=== PATIENT | female | born 1970 | race Caucasian/White ===

== ENCOUNTER → 2016-08-17 | Outpatient (CLI) | payer MEDICARE, OTHER ==
[2016-08-17 14:15] LABS: Blood Urea Nitrogen 10 mg/dL (7-17); Lithium 0.5 mmol/L; Non-African American GFR(MDRD) >60 (>60 ml/min/1.73 sqM)
[2016-08-18 14:52] LABS: Nortriptyline 106 ng/mL (50-140)
== END | disposition home or self-care (01) ==
LOC: LABWHC1 13:27
PROVIDERS: ATTEND Psychiatry & Neurology Psychiatry
DX: Z51.81 Encounter for therapeutic drug level monitoring (principal); Z79.899 Other long term (current) drug therapy
CPT/HCPCS: 84439; 82565; 80178; 84443; 84520; 36415; G0480; 80335

== ENCOUNTER → 2017-06-06 | Outpatient (CLI) | payer MEDICARE, OTHER ==
[2017-06-06 14:38] LABS: Lithium 0.4 mmol/L
[2017-06-06 14:52] LABS: T4, Free (Free Thyroxine) 0.92 ng/dL (0.78-2.19)
== END | disposition home or self-care (01) ==
LOC: LABWHC1 13:59
PROVIDERS: ATTEND Psychiatry & Neurology Psychiatry
DX: Z51.81 Encounter for therapeutic drug level monitoring (principal); Z79.899 Other long term (current) drug therapy
CPT/HCPCS: 36415; 80178; 82565; 84439; 84443; 84520

== ENCOUNTER → 2018-04-23 | Outpatient (CLI) | payer MEDICARE, OTHER ==
[2018-04-23 18:07] LABS: Lithium 0.4 mmol/L (1.0-1.2)
[2018-04-23 18:12] LABS: T4, Free (Free Thyroxine) 1.1 ng/dL (0.80-1.80)
== END | disposition home or self-care (01) ==
LOC: LABWHC1 12:48
PROVIDERS: ATTEND Psychiatry & Neurology Psychiatry
DX: Z51.81 Encounter for therapeutic drug level monitoring (principal); Z79.899 Other long term (current) drug therapy
CPT/HCPCS: 36415; 80178; 82565; 84439; 84443; 84520

== ENCOUNTER 2021-10-23 01:38 | Emergency (ER) | payer MEDICARE, OTHER ==
--- NOTE | 2021-10-23 01:52 | ED ---
Psych HPI - General Chief Complaint: Psychiatric Symptoms Stated Complaint: Police petition Time Seen by Provider: 10/23/21 01:52 Source: patient, police, RN notes reviewed, old records reviewed Mode of arrival: ambulatory Limitations: altered mental status - History of Present Illness Initial Comments: This is a 51-year-old female to the emergency department for evaluation. Patient brought in by family petition and family and PD for psychiatric eval uation secondary increased melba insomnia, increased agitation. No suspicion for drugs or alcohol abuse. Patient has history of same which she indicated combative and difficult to be around per family. MD Complaint: altered mental status -: unknown Associated Psychiatric Symptoms: racing thoughts, auditory hallucinations, visual hallucinations, delusions Quality: getting worse Improves With: none Context: significant life stressor Associated Symptoms: confusion, insomnia Treatments Prior to Arrival: placed on mental health hold - Related Data Home Medications Medication Instructions Recorded Confirmed [place] Carbonate [[place] 600 mg PO BID 10/23/21 10/23/21 Carbonate ER] buPROPion XL [Wellbutrin XL] 150 mg PO DAILY 10/23/21 10/23/21 Allergies Allergy/AdvReac Type Severity Reaction Status Date / Time amoxicillin Allergy Rash/Hives Verified 10/23/21 14:04 carbamazepine [From Tegretol] Allergy Unknown Verified 10/23/21 14:04 fluphenazine enanthate Allergy Unknown Verified 10/23/21 14:04 [From Prolixin] fluphenazine HCl Allergy Unknown Verified 10/23/21 14:04 [From Prolixin] olanzapine [From Zyprexa] Allergy Unknown Verified 10/23/21 14:04 Review of Systems ROS Statement: Those systems with pertinent positive or pertinent negative responses have been documented in the HPI. ROS Other: All systems not noted in ROS Statement are negative. Past Medical History Past Medical History: No Reported History History of Any Multi-Drug Resistant Organisms: None Reported Past Surgical History: Breast Surgery, Orthopedic Surgery Additional Past Surgical History / Comment(s): LEEP procedure, and scope v aginally. Breast augmentation. Left great toe surgery has jose and pins in it. Past Anesthesia/Blood Transfusion Reactions: No Reported Reaction Past Psychological History: Anxiety, Bipolar, Depression Smoking Status: Current every day smoker Past Alcohol Use History: Occasional Past Drug Use History: Marijuana - Past Family History Father Family Medical History: Unable to Obtain Additional Family Medical History / Comment(s): unknown Mother Family Medical History: Pulmonary Embolus Additional Family Medical History / Comment(s): Mental Illness, she had Bipolar Depression. General Exam Limitations: no limitations General appearance: alert, in no apparent distress Head exam: Present: atraumatic, normocephalic, normal inspection Eye exam: Present: normal appearance, PERRL, EOMI. Absent: scleral icterus, conjunctival injection, periorbital swelling ENT exam: Present: normal exam, mucous membranes moist Neck exam: Present: normal inspection. Absent: tenderness, meningismus, lymphadenopathy Respiratory exam: Present: normal lung sounds bilaterally. Absent: respiratory distress, wheezes, rales, rhonchi, stridor Cardiovascular Exam: Present: regular rate, normal rhythm, normal heart sounds. Absent: systolic murmur, diastolic murmur, rubs, gallop, clicks GI/Abdominal exam: Present: soft, normal bowel sounds. Absent: distended, tenderness, guarding, rebound, rigid Extremities exam: Present: normal inspection, full ROM, normal capillary refill. Absent: tenderness, pedal edema, joint swelling, calf tenderness Back exam: Present: normal inspection Neurological exam: Present: alert, oriented X3, CN II-XII intact Psychiatric exam: Present: normal affect, normal mood Skin exam: Present: warm, dry, intact, normal color. Absent: rash Course Vital Signs 10/23/21 10/23/21 10/23/21 01:41 05:55 15:00 Temperature 98.1 F 98.7 F Pulse Rate 65 98 87 Respiratory 18 16 16 Rate Blood Pressure 182/116 151/97 131/86 O2 Sat by Pulse 97 98 99 Oximetry - Reevaluation(s) Reevaluation #1: 10/22/21 medical record is reviewed Patient's medically clear for psychiatric evaluation Reevaluation #2: 10/22/21 14:15 Patient was seen and evaluated by psychiatry, was deemed okay for discharge Patient family came to see patient upon discharge the patient became very combative and unruly with family At this time patient was reevaluated by psychiatry with decision made to transfer patient to inpatient psychiatric treatment Medical Decision Making - Medical Decision Making 51 female to the emergency department seen and evaluated psychiatry 2 times here in the emergency department tonight, patient will be transferred for inpatient psychiatric evaluation and treatment - Lab Data Result diagrams: 10/23/21 06:13 10/23/21 06:13 Lab Results 10/23/21 10/23/21 10/23/21 Range/Units 02:15 02:15 02:15 WBC (3.8-10.6) k/uL RBC (3.80-5.40) m/uL Hgb (11.4-16.0) gm/dL Hct (34.0-46.0) % MCV (80.0-100.0) fL MCH (25.0-35.0) pg MCHC (31.0-37.0) g/dL RDW (11.5-15.5) % Plt Count (150-450) k/uL MPV Sodium (137-145) mmol/L Potassium (3.5-5.1) mmol/L Chloride (98-107) mmol/L Carbon Dioxide (22-30) mmol/L Anion Gap mmol/L BUN (7-17) mg/dL Creatinine (0.52-1.04) mg/dL Est GFR (CKD-EPI)AfAm (>60 ml/min/1.73 sqM) Est GFR (CKD-EPI)NonAf (>60 ml/min/1.73 sqM) Glucose (74-99) mg/dL Calcium (8.4-10.2) mg/dL Total Bilirubin (0.2-1.3) mg/dL AST (14-36) U/L ALT (4-34) U/L Alkaline Phosphatase (38-126) U/L Total Protein (6.3-8.2) g/dL Albumin (3.5-5.0) g/dL Urine Color Light Yellow Urine Appearance Clear (Clear) Urine pH 6.0 (5.0-8.0) Ur Specific [place] 1.009 (1.001-1.035) Urine Protein Negative (Negative) Urine Glucose (UA) Negative (Negative) Urine Ketones Negative (Negative) Urine Blood Trace H (Negative) Urine Nitrite Negative (Negative) Urine Bilirubin Negative (Negative) Urine Urobilinogen <2.0 (<2.0) mg/dL Ur Leukocyte Esterase Negative (Negative) Urine RBC <1 (0-5) /hpf Urine WBC 2 (0-5) /hpf Ur Squamous Epith Cells 2 (0-4) /hpf Hyaline Casts 13 H (0-2) /lpf Urine Mucus Rare H (None) /hpf Urine HCG, Qual Not Detected (Not Detectd) Urine Opiates Screen Not Detected (NotDetected) Ur Oxycodone Screen Not Detected (NotDetected) Urine Methadone Screen Not Detected (NotDetected) Ur Propoxyphene Screen Not Detected (NotDetected) Ur Barbiturates Screen Not Detected (NotDetected) U Tricyclic Antidepress Not Detected (NotDetected) Ur Phencyclidine Scrn Not Detected (NotDetected) Ur Amphetamines Screen Not Detected (NotDetected) U Methamphetamines Scrn Not Detected (NotDetected) U Benzodiazepines Scrn Not Detected (NotDetected) Urine Cocaine Screen Not Detected (NotDetected) U Marijuana (THC) Screen Not Detected (NotDetected) Coronavirus (PCR) (Not Detectd) 10/23/21 10/23/21 10/23/21 Range/Units 06:13 06:13 06:13 WBC 12.5 H (3.8-10.6) k/uL RBC 4.00 (3.80-5.40) m/uL Hgb 12.2 (11.4-16.0) gm/dL Hct 36.8 (34.0-46.0) % MCV 91.9 (80.0-100.0) fL MCH 30.4 (25.0-35.0) pg MCHC 33.0 (31.0-37.0) g/dL RDW 13.2 (11.5-15.5) % Plt Count 281 (150-450) k/uL MPV 8.0 Sodium 139 (137-145) mmol/L Potassium 4.1 (3.5-5.1) mmol/L Chloride 108 H (98-107) mmol/L Carbon Dioxide 20 L (22-30) mmol/L Anion Gap 11 mmol/L BUN 13 (7-17) mg/dL Creatinine 0.86 (0.52-1.04) mg/dL Est GFR (CKD-EPI)AfAm >90 (>60 ml/min/1.73 sqM) Est GFR (CKD-EPI)NonAf 80 (>60 ml/min/1.73 sqM) Glucose 125 H (74-99) mg/dL Calcium 10.1 (8.4-10.2) mg/dL Total Bilirubin 0.5 (0.2-1.3) mg/dL AST 20 (14-36) U/L ALT 21 (4-34) U/L Alkaline Phosphatase 75 (38-126) U/L Total Protein 7.4 (6.3-8.2) g/dL Albumin 4.5 (3.5-5.0) g/dL Urine Color Urine Appearance (Clear) Urine pH (5.0-8.0) Ur Specific [place] (1.001-1.035) Urine Protein (Negative) Urine Glucose (UA) (Negative) Urine Ketones (Negative) Urine Blood (Negative) Urine Nitrite (Negative) Urine Bilirubin (Negative) Urine Urobilinogen (<2.0) mg/dL Ur Leukocyte Esterase (Negative) Urine RBC (0-5) /hpf Urine WBC (0-5) /hpf Ur Squamous Epith Cells (0-4) /hpf Hyaline Casts (0-2) /lpf Urine Mucus (None) /hpf Urine HCG, Qual (Not Detectd) Urine Opiates Screen (NotDetected) Ur Oxycodone Screen (NotDetected) Urine Methadone Screen (NotDetected) Ur Propoxyphene Screen (NotDetected) Ur Barbiturates Screen (NotDetected) U Tricyclic Antidepress (NotDetected) Ur Phencyclidine Scrn (NotDetected) Ur Amphetamines Screen (NotDetected) U Methamphetamines Scrn (NotDetected) U Benzodiazepines Scrn (NotDetected) Urine Cocaine Screen (NotDetected) U Marijuana (THC) Screen (NotDetected) Coronavirus (PCR) Not Detected (Not Detectd) Disposition Clinical Impression: Insomnia, Acute psychosis, Major depression, recurrent, chronic, Panic anxiety syndrome, Depression Disposition: TRANSFER TO PSYCH HOSP/UNIT Condition: Fair Instructions (If sedation given, give patient instructions): Brief Psychotic Disorder (ED) Is patient prescribed a controlled substance at d/c from ED?: No Referrals: Delano Valdes MD [Primary Care Provider] - 1-2 days
[2021-10-23 02:37] LABS: Amphetamine Screen,Urine Not Detected (NotDetected); Barbiturate Screen,Urine Not Detected (NotDetected); Benzodiazepines Screen,Urine Not Detected (NotDetected); Cocaine Screen,Urine Not Detected (NotDetected); Methadone Screen, Urine Not Detected (NotDetected); Opiate Screen,Urine Not Detected (NotDetected); Oxycodone Screen, Urine Not Detected (NotDetected); Phencyclidine Screen,Urine Not Detected (NotDetected); Tricyclic Antidepressant,Urine Not Detected (NotDetected); Urn Cannabinoid Scrn Not Detected (NotDetected)
[2021-10-23] MEDS ORDERED: HALOPERIDOL LACTATE 5 MG/ML 1 ML VIAL IM STA (05:03)
[2021-10-23 06:13] LABS: Appearance,Urine Clear (Clear); Bilirubin,Urine Negative (Negative); Blood,Urine Trace (Negative); Color,Urine Light Yellow; Glucose,Urine (UA) Negative (Negative); Hyaline Casts,Urine 13 /lpf (0-2); Ketones,Urine Negative (Negative); Leukocyte Esterase,Urine Negative (Negative); Mucus,Urine Rare /hpf; Nitrite,Urine Negative (Negative); Protein,Urine Negative (Negative); RBC,Urine <1 /hpf (0-5); Specific Gravity,Urine 1.009 (1.001-1.035); Squamous Epithelial Cell,Urine 2 /hpf (0-4); Urobilinogen,Urine <2.0 mg/dL (<2.0); WBC,Urine 2 /hpf (0-5)
[2021-10-23 06:39] LABS: HCT 36.8 % (34.0-46.0); HGB 12.2 gm/dL (11.4-16.0); MCH 30.4 pg (25.0-35.0); MCV 91.9 fL (80.0-100.0); Platelet Count 281 k/uL (150-450); RDW 13.2 % (11.5-15.5); WBC 12.5 k/uL (3.8-10.6)
[2021-10-23 06:46] LABS: ALT 21 U/L (4-34); AST 20 U/L (14-36); African American GFR (CKD) >90 (>60 ml/min/1.73 sqM); Albumin 4.5 g/dL (3.5-5.0); Alkaline Phosphatase 75 U/L (38-126); Anion Gap 11 mmol/L; Blood Urea Nitrogen 13 mg/dL (7-17); Calcium 10.1 mg/dL (8.4-10.2); Carbon Dioxide 20 mmol/L (22-30); Chloride 108 mmol/L (98-107); Glucose 125 mg/dL (74-99); Non-African American GFR(CKD) 80 (>60 ml/min/1.73 sqM); Potassium 4.1 mmol/L (3.5-5.1); Sodium 139 mmol/L (137-145); Total Bilirubin 0.5 mg/dL (0.2-1.3); Total Protein 7.4 g/dL (6.3-8.2)
[2021-10-23 16:07] VITALS: TEMP 98.7
[2021-10-23] MEDS: LITHIUM CARBONATE 300 MG CAP PO SCH (19:01)
[2021-10-23] MEDS ORDERED: LORazepam 1 MG TAB PO STA (21:11)
[2021-10-23] MEDS ORDERED: BENZOCAINE/MENTHOL LOZENG 1 EACH LOZENGE MUCOUS MEM PRN (22:14)
[2021-10-24] MEDS: LITHIUM CARBONATE 300 MG CAP PO SCH (08:07)
[2021-10-24] MEDS ORDERED: buPROPion XL 300 MG TAB.ER.24H PO SCH (09:00)
[2021-10-24 14:47] VITALS: BP 139/78; PULSE 88; RESP 20
== END 2021-10-24 14:47 ==
LOC: EC 01:38
DX: F32.A Depression, unspecified (principal); F41.9 Anxiety disorder, unspecified; G47.00 Insomnia, unspecified; F17.200 Nicotine dependence, unspecified, uncomplicated; Z20.822 Contact with and (suspected) exposure to COVID-19; Z88.0 Allergy status to penicillin; Z88.8 Allergy status to other drugs, medicaments and biological substances; Z88.7 Allergy status to serum and vaccine
CPT/HCPCS: 82075; 36415; 80053; 80178; 85027; 81001; 81025; 80306; 87635; 99285; 96372; J1630

== ENCOUNTER 2022-06-02 15:20 | Inpatient (IN) | payer MEDICARE ==
[2022-06-02] MEDS ORDERED: NALOXONE 0.4 MG/ML 1 ML VIAL IV PRN (15:58)
--- NOTE | 2022-06-02 16:02 | P.HPIM ---
History of Present Illness H&P Date: 06/02/22 Chief Complaint: Catatonia, dehydration 52-year-old woman with a medical history of bipolar disorder presented as a transfer from [facility] under petition certification for worsening psychiatric symptoms. Medicine was consulted for medical clearance of this patient. However, medicine was later contacted given patient's dehydration status, poor by mouth intake, severe catatonia. They requested transfer to the medical floor for IV fluids as well as IV Ativan to break catatonia. Patient is a poor historian and cannot provide any history and cannot participate with review of systems. Upon evaluation, patient was afebrile, 117/72, heart rate 105, 95% on room air. CBC reviewed from this morning shows leukocytosis to 14.4, chemistries show 134 sodium, CO2 of 21, BUN 21, creatinine of 0.88. Calcium is 10.4. Liver function tests show total bilirubin of 1.5. CK is 604. Vitamin B-12 was 454, folate was 30.8. UA shows cloudy appearance with trace protein, large blood, 8 red blood cells, 6 white blood cells, rare bacteria. [place] level was 1.3 this morning. Treponema antibody was nonreactive. EKG shows sinus tachycardia with left axis deviation, good R-wave progression, no signs of ischemia. Review of systems could not be completed due to patient's mental status Gen: in no apparent distress, resting comfortably in bed Eyes: PERRL, no scleral injection or icterus HENT: normocephalic, atraumatic, good hearing acuity, dry mucous membranes Neck: no tracheal deviation, full range of motion Resp: good air exchange, breathing comfortably with no accessory muscle use, no tactile fremitus, clear to auscultation bilaterally CVS: good distal perfusion x 4, no pitting edema, tachycardic, regular, no murmurs GI: soft, NTTP, ND, no hepatosplenomegaly, normal bowel sounds : no suprapubic tenderness, no CVAT, irvin catheter not present MSK: no clubbing, no cyanosis, no noted contractures of extremities Skin: no noted rashes, petechiae; temperature of skin is appropriate Neuro: moving all extremities without signs of weakness, CN II-XII intact Psych: Catatonia with waxy rigidity, impaired insight and judgment Labs and imaging as above Assessment: Dehydration secondary to poor by mouth intake Catatonia Bipolar disorder Plan: Case discussed with the psychiatry team and decision was made to escalate care to the medical floor for dehydration as well as catatonia requiring benzodiazepines via the IV route Labs were reviewed and noted in HPI including CBC, BMP, CK, vitamin B12, folate, UA, Treponema, lithium level, liver function tests EKG was personally interpreted noted in HPI CBC, BMP, magnesium ordered for tomorrow Repeat lithium level was ordered and a red top tube to ensure no lithium contamination in the reading Patient was started on IV fluids with lactated Ringer's at 100 mL per hour and given a 1000 mL bolus Start IV Ativan 1 mg every 6 hours scheduled with hold parameters for SBP less than 100, DBP less than 60, heart rate less than 60 Psychiatry consult placed Monitor the patient on telemetry Past Medical History Past Medical History: No Reported History History of Any Multi-Drug Resistant Organisms: None Reported Past Surgical History: Breast Surgery, Orthopedic Surgery Additional Past Surgical History / Comment(s): LEEP procedure, and scope vaginally. Breast augmentation. Left great toe surgery has jose and pins in it. Past Anesthesia/Blood Transfusion Reactions: No Reported Reaction Smoking Status: Current every day smoker - Past Family History Father Family Medical History: Unable to Obtain Additional Family Medical History / Comment(s): unknown Mother Family Medical History: Pulmonary Embolus Additional Family Medical History / Comment(s): Mental Illness, she had Bipolar Depression. Medications and Allergies Home Medications Medication Instructions Recorded Confirmed Type Val[place] Carbonate [Val[place] 600 mg PO BID 10/23/21 05/31/22 History Carbonate ER] Allergies Allergy/AdvReac Type Severity Reaction Status Date / Time amoxicillin Allergy Rash/Hives Verified 05/31/22 00:36 carbamazepine [From Tegretol] Allergy Unknown Verified 05/31/22 00:36 fluphenazine enanthate Allergy Unknown Verified 05/31/22 00:36 [From Prolixin] fluphenazine HCl Allergy Unknown Verified 05/31/22 00:36 [From Prolixin] olanzapine [From Zyprexa] Allergy Unknown Verified 05/31/22 00:36 Physical Exam Osteopathic Statement: *. No significant issues noted on an osteopathic structural exam other than those noted in the History and Physical/Consult.
[2022-06-02] MEDS ORDERED: LACTATED RINGERS 1,000 ML IV SCH (16:15)
[2022-06-02] MEDS: LORazepam 2 MG/ML INJ IV SCH (17:50)
[2022-06-02] MEDS: LACTATED RINGERS 1,000 ML IV SCH (18:26)
[2022-06-03] MEDS: LORazepam 2 MG/ML INJ IV SCH ×4 (00:28→17:59)
[2022-06-03] MEDS: LACTATED RINGERS 1,000 ML IV SCH ×3 (00:29→21:21)
[2022-06-03 08:54] LABS: Basophils # (A) 0.03 X 10*3/uL (0.00-0.10); Basophils % (A) 0.4 %; Eosinophils % (A) 1.2 %; HCT 34.9 % (37.2-46.3); HGB 11.4 g/dL (12.0-15.0); Immature Grans, Automated 0.4 %; Lymphocytes # (A) 1.24 X 10*3/uL (0.90-5.00); Lymphocytes % (A) 14.8 %; MCH 29.3 pg (27.0-32.0); MCHC 32.7 g/dL (32.0-37.0); MCV 89.7 fL (80.0-97.0); Mean Platelet Volume 10.9 fL (9.5-12.2); Monocytes % (A) 7.2 %; NRBC Per 100 WBC 0 /100 WBCS (0.0-0.0); Neutrophils # (A) 6.37 X 10*3/uL (1.80-7.70); Platelet Count 273 X 10*3/uL (140-440); RBC 3.89 X 10*6/uL (4.10-5.20); RDW 13.8 % (11.5-14.5); WBC 8.37 X 10*3/uL (4.50-10.00)
[2022-06-03] MEDS: ENOXAPARIN 40 MG/0.4 ML SYRINGE SQ SCH (08:59)
[2022-06-03 09:27] LABS: African American GFR (CKD) 117.1 (60.0-200.0); Anion Gap 9.9 mmol/L (10.00-18.00); BUN/Creat Ratio 13.71 Ratio (12.00-20.00); Blood Urea Nitrogen 9.6 mg/dL (9.0-27.0); Calcium 9.7 mg/dL (8.7-10.3); Carbon Dioxide 23.1 mmol/L (20.0-27.5); Magnesium 2.1 mg/dL (1.5-2.4); Potassium 3.8 mmol/L (3.5-5.5)
--- NOTE | 2022-06-03 10:38 | P.PN ---
Subjective Progress Note Date: 06/03/22 No new complaints today, patient continues to not be very interactive with history. Continues to be significantly catatonic. Pending psychiatry consultation. Gen: in no apparent distress, resting comfortably in bed Eyes: PERRL, no scleral injection or icterus HENT: normocephalic, atraumatic, good hearing acuity, dry mucous membranes Neck: no tracheal deviation, full range of motion Resp: good air exchange, breathing comfortably with no accessory muscle use, no tactile fremitus, clear to auscultation bilaterally CVS: good distal perfusion x 4, no pitting edema, tachycardic, regular, no murmurs GI: soft, NTTP, ND, no hepatosplenomegaly, normal bowel sounds : no suprapubic tenderness, no CVAT, irvin catheter not present MSK: no clubbing, no cyanosis, no noted contractures of extremities Skin: no noted rashes, petechiae; temperature of skin is appropriate Neuro: moving all extremities without signs of weakness, CN II-XII intact Psych: Catatonia with waxy rigidity, impaired insight and judgment Hospital course: 52-year-old woman with a medical history of bipolar disorder presented as a transfer from [facility] under petition certification for worsening ps ychiatric symptoms. Medicine was consulted for medical clearance of this patient. However, medicine was later contacted given patient's dehydration status, poor by mouth intake, severe catatonia. They requested transfer to the medical floor for IV fluids as well as IV Ativan to break catatonia. Upon evaluation, patient was afebrile, 117/72, heart rate 105, 95% on room air. CBC reviewed from this morning shows leukocytosis to 14.4, chemistries show 134 sodium, CO2 of 21, BUN 21, creatinine of 0.88. Calcium is 10.4. Liver function tests show total bilirubin of 1.5. CK is 604. Vitamin B-12 was 454, folate was 30.8. UA shows cloudy appearance with trace protein, large blood, 8 red blood cells, 6 white blood cells, rare bacteria. [place] level was 1.3 this morning. Treponema antibody was nonreactive. EKG shows sinus tachycardia with left axis deviation, good R-wave progression, no signs of ischemia. Assessment: Dehydration secondary to poor by mouth intake Catatonia Bipolar disorder Plan: Vital signs reviewed, patient is afebrile, 116/74, heart rate 84, 97% on room air. CBC today shows hemoglobin of 11.4, platelets of 273. Basic metabolic panel shows sodium of 141, potassium 3.8, chloride of 108, BUN of 9.6, these labs are improved from prior and showed resolution of dehydration BMP, magnesium ordered for tomorrow Repeat lithium level drawn yesterday in red top tube was 0.9, down from 1.3 This is discussed with psychiatry, they will see the patient today and determine adjustments to Ativan as required Continue lactated Ringer's at 100 mL per hour Continue IV Ativan 1 mg every 6 hours scheduled with hold parameters for SBP less than 100, DBP less than 60, heart rate less than 60; this is a high risk medication requiring close monitoring for toxicity Psychiatry consult placed Objective - Vital Signs Vital signs: Vital Signs Temp 97.6 F 06/03/22 07:06 Pulse 84 06/03/22 07:06 Resp 16 06/03/22 07:06 BP 116/74 06/03/22 07:06 Pulse Ox 97 06/03/22 07:06 FiO2 Intake & Output 06/02/22 06/03/22 06/03/22 18:59 06:59 18:59 Intake Total 1000 Balance 1000 Weight 65 kg Intake: Intake, IV Titration 1000 Amount Lactated Ringers 1,000 ml 1000 @ 999 mls/hr IV .Q1H1M [facility] Rx#:[id number] Other: Voiding Method Toilet External Catheter # Voids 3 - Labs CBC & Chem 7: 06/03/22 05:22 06/03/22 05:22 Labs: Abnormal Lab Results - Last 24 Hours (Table) 06/03/22 06/03/22 Range/Units 05:22 05:22 RBC 3.89 L (4.10-5.20) X 10*6/uL Hgb 11.4 L (12.0-15.0) g/dL Hct 34.9 L (37.2-46.3) % Anion Gap 9.90 L (10.00-18.00) mmol/L Glucose 112 H (70-110) mg/dL
[2022-06-03] MEDS ORDERED: VALPROATE SODIUM 500 MG in SODIUM CHLORIDE 0.9% 100 ML IVPB SCH (21:00)
[2022-06-03] MEDS ORDERED: VALPROATE SODIUM 750 MG in SODIUM CHLORIDE 0.9% 100 ML IVPB SCH (21:00)
[2022-06-03] MEDS: ZOLPIDEM 5 MG TAB PO SCH (21:21)
[2022-06-03] MEDS: VALPROATE SODIUM 500 MG in SODIUM CHLORIDE 0.9% 100 ML IVPB SCH (21:21)
[2022-06-03] MEDS ORDERED: LORazepam 2 MG/ML INJ IV SCH (22:00)
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
[2022-06-04] MEDS: LORazepam 2 MG/ML INJ IV SCH ×5 (04:25→18:20)
[2022-06-04] MEDS: LACTATED RINGERS 1,000 ML IV SCH ×2 (08:44→18:21)
[2022-06-04] MEDS: VALPROATE SODIUM 500 MG in SODIUM CHLORIDE 0.9% 100 ML IVPB SCH (08:50)
[2022-06-04] MEDS: ENOXAPARIN 40 MG/0.4 ML SYRINGE SQ SCH (08:51)
--- NOTE | 2022-06-04 12:08 | P.PN ---
Subjective Progress Note Date: 06/04/22 No new complaints today, patient continues to not be very interactive with history, but is improving slowly. Continues to be catatonic. Gen: in no apparent distress, resting comfortably in bed Eyes: PERRL, no scleral injection or icterus HENT: normocephalic, atraumatic, good hearing acuity, dry mucous membranes Neck: no tracheal deviation, full range of motion Resp: good air exchange, breathing comfortably with no accessory muscle use, no tactile fremitus, clear to auscultation bilaterally CVS: good distal perfusion x 4, no pitting edema, tachycardic, regular, no murmurs GI: soft, NTTP, ND, no hepatosplenomegaly, normal bowel sounds : no suprapubic tenderness, no CVAT, irvin catheter not present MSK: no clubbing, no cyanosis, no noted contractures of extremities Skin: no noted rashes, petechiae; temperature of skin is appropriate Neuro: moving all extremities without signs of weakness, CN II-XII intact Psych: Catatonia with waxy rigidity, impaired insight and judgment Hospital course: 52-year-old woman with a medical history of bipolar disorder presented as a transfer from [facility] under petition certification for worsening psychiatric symptoms. Medicine was consulted for medical clearance of this patient. However, medicine was later contacted given patient's dehydration status, poor by mouth intake, severe catatonia. They requested transfer to the medical floor for IV fluids as well as IV Ativan to break catatonia. Upon evaluation, patient was afebrile, 117/72, heart rate 105, 95% on room air. CBC reviewed from this morning shows leukocytosis to 14.4, chemistries show 134 sodium, CO2 of 21, BUN 21, creatinine of 0.88. Calcium is 10.4. Liver function tests show total bilirubin of 1.5. CK is 604. Vitamin B-12 was 454, folate was 30.8. UA shows cloudy appearance with trace protein, large blood, 8 red blood cells, 6 white blood cells, rare bacteria. Gu-Win level was 1.3 this morning. Treponema antibody was nonreactive. EKG shows sinus tachycardia with left axis deviation, good R-wave progression, no signs of ischemia. Assessment: Dehydration secondary to poor by mouth intake Catatonia Bipolar disorder Plan: Vital signs reviewed, patient is afebrile, 143/87, heart rate 105, 94% on room air BMP, magnesium ordered for tomorrow CK levels reviewed, 251, down from 600s Psychiatry no reviewed, patient has been showing continued catatonia, they will increase Ativan dose and add Depakote Continue lactated Ringer's at 100 mL per hour Continue IV Ativan 1 mg every 4 hours scheduled with hold parameters for SBP less than 100, DBP less than 60, heart rate less than 60; this is a high risk medication requiring close monitoring for toxicity Agree with Depakote 500 mg twice a day Agree with Ambien 10 mg at bedtime Patient is full code Objective - Vital Signs Vital signs: Vital Signs Temp 98.0 F 06/04/22 07:38 Pulse 105 H 06/04/22 08:00 Resp 18 06/04/22 07:38 BP 125/81 06/04/22 07:38 Pulse Ox 96 06/04/22 07:38 FiO2 Intake & Output 06/03/22 06/04/22 06/04/22 17:59 06:59 18:59 Intake Total Output Total Balance Intake: Intake, IV Titration Amount Lactated Ringers 1,000 ml @ 100 mls/hr IV .Q10H JULIANN Rx#:[id number] Valproate Sodium 500 mg In Sodium Chloride 0.9% 100 ml @ 100 mls/hr IVPB BID JULIANN Rx#:[id number] Oral Output: Urine Other: Voiding Method External Catheter # Voids - Labs CBC & Chem 7: 06/03/22 05:22 06/03/22 05:22 Labs: Abnormal Lab Results - Last 24 Hours (Table) 06/04/22 Range/Units 06:18 Creatine Kinase 251 H (26-186) U/L
[2022-06-04] MEDS: VALPROATE SODIUM 1,000 MG in SODIUM CHLORIDE 0.9% 100 ML IVPB SCH (20:44)
[2022-06-04] MEDS: ZOLPIDEM 5 MG TAB PO SCH (20:44)
[2022-06-05] MEDS: LORazepam 2 MG/ML INJ IV SCH ×6 (00:16→23:56)
[2022-06-05] MEDS: LACTATED RINGERS 1,000 ML IV SCH ×3 (04:22→23:56)
[2022-06-05] MEDS: VALPROATE SODIUM 1,000 MG in SODIUM CHLORIDE 0.9% 100 ML IVPB SCH (09:06)
[2022-06-05] MEDS: ENOXAPARIN 40 MG/0.4 ML SYRINGE SQ SCH (09:07)
--- NOTE | 2022-06-05 10:39 | P.PN ---
Subjective Progress Note Date: 06/05/22 No new complaints today Gen: in no apparent distress, resting comfortably in bed Eyes: PERRL, no scleral injection or icterus HENT: normocephalic, atraumatic, good hearing acuity, dry mucous membranes Neck: no tracheal deviation, full range of motion Resp: good air exchange, breathing comfortably with no accessory muscle use, no tactile fremitus, clear to auscultation bilaterally CVS: good distal perfusion x 4, no pitting edema, tachycardic, regular, no murmurs GI: soft, NTTP, ND, no hepatosplenomegaly, normal bowel sounds : no suprapubic tenderness, no CVAT, irvin catheter not present MSK: no clubbing, no cyanosis, no noted contractures of extremities Skin: no noted rashes, petechiae; temperature of skin is appropriate Neuro: moving all extremities without signs of weakness, CN II-XII intact Psych: Catatonia with waxy rigidity, impaired insight and judgment Hospital course: 52-year-old woman with a medical history of bipolar disorder presented as a transfer from [facility] under petition certification for worsening psychiatric symptoms. Medicine was consulted for medical clearance of this patient. However, medicine was later contacted given patient's dehydration status, poor by mouth intake, severe catatonia. They requested transfer to the medical floor for IV fluids as well as IV Ativan to break catatonia. Upon evaluation, patient was afebrile, 117/72, heart rate 105, 95% on room air. CBC reviewed from this morning shows leukocytosis to 14.4, chemistries show 134 sodium, CO2 of 21, BUN 21, creatinine of 0.88. Calcium is 10.4. Liver function tests show total bilirubin of 1.5. CK is 604. Vitamin B-12 was 454, folate was 30.8. UA shows cloudy appearance with trace protein, large blood, 8 red blood cells, 6 white blood cells, rare bacteria. Olivia Lopez De Gutierrez level was 1.3 this morning. Treponema antibody was nonreactive. EKG shows sinus tachycardia with left axis deviation, good R-wave progression, no signs of ischemia. Assessment: Dehydration secondary to poor by mouth intake Catatonia Bipolar disorder Plan: Vital signs reviewed, patient is afebrile, 131/81, heart rate 100, 96% on room air BMP, magnesium ordered for tomorrow Continue lactated Ringer's at 100 mL per hour Continue IV Ativan 1 mg every 4 hours scheduled with hold parameters for SBP less than 100, DBP less than 60, heart rate less than 60; this is a high risk medication requiring close monitoring for toxicity Agree with Depakote 500 mg twice a day Agree with Ambien 10 mg at bedtime Patient is full code Objective - Vital Signs Vital signs: Vital Signs Temp 98.8 F 06/05/22 07:16 Pulse 100 06/05/22 07:16 Resp 20 06/05/22 07:16 BP 131/81 06/05/22 07:16 Pulse Ox 96 06/05/22 07:16 FiO2 Intake & Output 06/04/22 06/05/22 06/05/22 18:59 06:59 18:59 Intake Total 1500 Output Total 300 900 250 Balance -300 600 -250 Intake: Intake, IV Titration 1300 Amount Lactated Ringers 1,000 ml 1200 @ 100 mls/hr IV .Q10H JULIANN Rx#:[id number] Valproate Sodium 1,000 mg 100 In Sodium Chloride 0.9% 100 ml @ 100 mls/hr IVPB BID JULIANN Rx#:[id number] Oral 200 Output: Urine 300 900 250 Other: Voiding Method External Catheter External Catheter External Catheter # Voids 1 - Labs CBC & Chem 7: 06/03/22 05:22 06/03/22 05:22
--- NOTE | 2022-06-05 17:56 | P.PN ---
Progress Note - Text Progress Note Date: 06/05/22 Psychiatry follow-up note: Interval history: Patient was seen earlier this morning and was found in bed with no obvious improvement in catatonic symptoms as compared to yesterday. She was found with stupor/immobility, mild rigidity, mutism. She does not open her eyes for me today and does not answer questions or follow commands. Nurse reports patient did open her eyes when her name was called. Vital signs reviewed and are stable. Discussed case with medical doctor Dr. Keyes and psychiatry medical grade shoemaker Dr. Agudelo, and will proceed with plans to transfer patient to another facility for ECT treatments to treat the catatonia. Discussed medications with Dr. Keyes, who reports patient's vital signs have tolerated the high doses of Ativan (so far at Ativan 2 mg IV Q6H) and we will plan to increase Ativan to 2 mg Q4H. Called [facility] referral line who report they cannot accommodate patient for ECT due to long wait list. Other hospitals that offer ECT will need to be contacted. Mental status exam: General Appearance: Catatonic, laying on her back, head titled, immobile, breathing loudly with mouth open. Behavior: Laying on her back in bed, catatonic, mutism, immobility. Speech: Mutism. Mood/Affect: Flat affect Suicidality/Homicidality: Unable to assess due to catatonia Perceptions: Unable to assess due to catatonia Though content/process: Unable to assess due to catatonia Memory and concentration: Unable to assess due to catatonia Judgment and insight: Unable to assess due to catatonia IMPRESSIONS: Catatonia Bipolar disorder Elevated CK, mild and trending down Poor oral intake PLAN: -At this time patient DOES require inpatient psychiatric admission, however she is not appropriate for the psychiatry unit at this time due to the severity of her catatonic symptoms and inability to attends to her basic needs. -Patient DOES NOT have decision making capacity at this time and is unable to reason through and communicate/appreciate the risks, benefits and alternatives to treatment. -Delirium precautions recommended with patient including - avoiding use of narcotics and ANGLE SHEAR SET UP OPERATOR sedatives, limit anticholinergic medications when possible, frequent re-orientation, minimize use of restraints, open window shades during the day and close them at night -Would recommend the following medication changes/additions: Increase Ativan to 2 mg IV Q4H scheduled for catatonia. Closely monitor vitals signs and hold for SBP less than 100, DBP less than 60, HR less than 60, or RR less than 8. Decrease Valproate sodium back to 500 mg IV BID for mood stabilization/catatonia. Monitor ammonia and check Depakote level, and adjust Depakote based on results. Continue Ambien 10 mg QHS for catatonia. -Recommend transferring to psychiatric facility that does ECT. Discussed with Dr. Keyes today. Declined by [facility] today due to very long wait list. Other hospitals will need to be contacted. -Fall precautions -Continue to reassess safety and initiate 1:1 sitter if safety concerns arise. -Cannot leave AMA at this time. Patient will need a petition and certification if attempting to leave AMA. -When medically stable and when patient's catatonia has resolved to the point she can attend to her basic needs, patient may eligible for transfer to a psych bed when available. -Communicated plan to patient's nurse. -Will continue to follow along. -Please contact with any questions.
--- NOTE | 2022-06-05 17:58 | P.PN ---
Progress Note - Text Progress Note Date: 06/04/22 Psychiatry Consult follow-up: Interval history: Patient was seen in her bed with IVs running. She continues to display signs of catatonia including mutism, posturing, immobility/stupor, mild rigidity. She is able to briefly open her eyes on command, and answer a couple questions with yes/no. She is able to say "yes" when asked if she has had catatonia before, if she has had ECT before (for catatonia), and if she agrees to ECT. She is able to follow simple command of shaking my hand briefly, then returns to no response to outside stimuli, grunts with breathing heavily. Nurses report some response after IV Ativan doses mostly with stabilization of vitals. Mental status exam: General Appearance: Patient is catatonic, laying on her bed with neck at odd angle, Behavior: Laying on her back in bed, catatonic, mutism, immobility. Speech: Patient's mumbled a few words softly, but mostly mutism. Mood/Affect: Mood is depressed, affect is blunted. Suicidality/Homicidality: Patient is not able to answer regarding any suicidal or homicidal ideation intent or plan. Perceptions: Unable to assess due to catatonia Though content/process: Unable to assess due to catatonia Memory and concentration: Unable to assess due to catatonia Judgment and insight: Unable to assess due to catatonia IMPRESSIONS: Catatonia Bipolar disorder Elevated CK, mild and trending down Poor oral intake PLAN: -At this time patient DOES require inpatient psychiatric admission, however she is not appropriate for the psychiatry unit at this time due to the severity of her catatonic symptoms and inability to attends to her basic needs. -Patient DOES NOT have decision making capacity at this time and is unable to reason through and communicate/appreciate the risks, benefits and alternatives to treatment. -Delirium precautions recommended with patient including - avoiding use of narcotics and ON SITE NURSE sedatives, limit anticholinergic medications when possible, frequent re-orientation, minimize use of restraints, open window shades during the day and close them at night -Would recommend the following medication changes/additions: Increase Ativan to 2 mg IV Q6H scheduled for catatonia. Closely monitor vitals signs and hold for SBP less than 100, DBP less than 60, HR less than 60, or RR less than 8. Increase Valproate sodium to 1000 mg IV BID x 2 doses for mood stabilization/catatonia. Continue Ambien 10 mg QHS for catatonia. -Consider transferring to psychiatric facility that does ECT. -Fall precautions -Continue to reassess safety and initiate 1:1 sitter if safety concerns arise. -Cannot leave AMA at this time. Patient will need a petition and certification if attempting to leave AMA. -When medically stable and when patient's catatonia has resolved to the point she can attend to her basic needs, patient may eligible for transfer to a psych bed when available. -Communicated plan to patient's nurse. -Will continue to follow along. -Please contact with any questions.
[2022-06-05] MEDS: ZOLPIDEM 5 MG TAB PO SCH (20:14)
[2022-06-05] MEDS: VALPROATE SODIUM 500 MG in SODIUM CHLORIDE 0.9% 100 ML IVPB SCH (20:38)
[2022-06-06] MEDS: LORazepam 2 MG/ML INJ IV SCH ×5 (04:15→20:16)
[2022-06-06 05:01] LABS: African American GFR (CKD) >90 (>60 ml/min/1.73 sqM); Anion Gap 6 mmol/L; Blood Urea Nitrogen 15 mg/dL (7-17); Calcium 8.6 mg/dL (8.4-10.2); Carbon Dioxide 24 mmol/L (22-30); Chloride 109 mmol/L (98-107); Glucose 90 mg/dL (74-99); Magnesium 2.2 mg/dL (1.6-2.3); Non-African American GFR(CKD) >90 (>60 ml/min/1.73 sqM); Potassium 3.8 mmol/L (3.5-5.1); Sodium 139 mmol/L (137-145)
[2022-06-06 05:06] LABS: Valproic Acid (Depakene) 92.6 ug/mL
[2022-06-06] MEDS: ENOXAPARIN 40 MG/0.4 ML SYRINGE SQ SCH (08:51)
[2022-06-06] MEDS: VALPROATE SODIUM 500 MG in SODIUM CHLORIDE 0.9% 100 ML IVPB SCH ×2 (08:51→20:27)
[2022-06-06] MEDS: LACTATED RINGERS 1,000 ML IV SCH ×2 (08:56→20:17)
--- NOTE | 2022-06-06 11:22 | P.PN ---
Subjective Progress Note Date: 06/06/22 No new complaints today. Patient continues to have severe catatonia. Gen: in no apparent distress, resting comfortably in bed Eyes: PERRL, no scleral injection or icterus HENT: normocephalic, atraumatic, good hearing acuity, dry mucous membranes Neck: no tracheal deviation, full range of motion Resp: good air exchange, breathing comfortably with no accessory muscle use, no tactile fremitus, clear to auscultation bilaterally CVS: good distal perfusion x 4, no pitting edema, tachycardic, regular, no murmurs GI: soft, NTTP, ND, no hepatosplenomegaly, normal bowel sounds : no suprapubic tenderness, no CVAT, irvin catheter not present MSK: no clubbing, no cyanosis, no noted contractures of extremities Skin: no noted rashes, petechiae; temperature of skin is appropriate Neuro: moving all extremities without signs of weakness, CN II-XII intact Psych: Catatonia with waxy rigidity, impaired insight and judgment Hospital course: 52-year-old woman with a medical history of bipolar disorder presented as a transfer from [facility] under petition certification for worsening psychiatric symptoms. Medicine was consulted for medical clearance of this patient. However, medicine was later contacted given patient's dehydration status, poor by mouth intake, severe catatonia. They requested transfer to the medical floor for IV fluids as well as IV Ativan to break catatonia. Upon evaluation, patient was afebrile, 117/72, heart rate 105, 95% on room air. CBC reviewed from this morning shows leukocytosis to 14.4, chemistries show 134 sodium, CO2 of 21, BUN 21, creatinine of 0.88. Calcium is 10.4. Liver function tests show total bilirubin of 1.5. CK is 604. Vitamin B-12 was 454, folate was 30.8. UA shows cloudy appearance with trace protein, large blood, 8 red blood cells, 6 white blood cells, rare bacteria. [place] level was 1.3 this morning. Treponema antibody was nonreactive. EKG shows sinus tachycardia with left axis deviation, good R-wave progression, no signs of ischemia. Assessment: Dehydration secondary to poor by mouth intake Catatonia Bipolar disorder Plan: Vital signs reviewed, patient is afebrile, 103/69, heart rate 76, 95% on room air Basic metabolic panel shows chloride of 109, otherwise unremarkable. Magnesium is 2.2. Valproic acid level was 92.6. Order basic metabolic panel, magnesium for tomorrow Continue lactated Ringer's at 100 mL per hour Continue IV Ativan 2 mg every 4 hours scheduled with hold parameters for SBP less than 100, DBP less than 60, heart rate less than 60; this is a high risk medication requiring close monitoring for toxicity Agree with Depakote 500 mg twice a day Agree with Ambien 10 mg at bedtime Patient is full code Objective - Vital Signs Vital signs: Vital Signs Temp 98.1 F 06/06/22 07:25 Pulse 76 06/06/22 07:25 Resp 20 06/06/22 07:25 BP 103/69 06/06/22 07:25 Pulse Ox 95 06/06/22 07:25 FiO2 Intake & Output 06/05/22 06/06/22 06/06/22 18:59 06:59 18:59 Intake Total 0 Output Total 450 1250 400 Balance -450 -1250 -400 Intake: Oral 0 Output: Urine 450 1250 400 Other: Voiding Method External Catheter External Catheter # Voids 1 1 - Labs CBC & Chem 7: 06/03/22 05:22 06/06/22 04:33 Labs: Abnormal Lab Results - Last 24 Hours (Table) 06/06/22 Range/Units 04:33 Chloride 109 H (98-107) mmol/L
--- NOTE | 2022-06-06 13:02 | P.PN ---
Progress Note - Text Progress Note Date: 06/06/22 Psychiatry follow-up note: Interval history: Patient continues to display significant catatonia. She displays significant symptoms of mutism, stupor, catalepsy, and negativism. Makayla-Maxime rating of 22. She has been non responsive to external stimuli including painful stimuli. Discussed case with medical doctor Dr. Keyes and psychiatry paramedical aide Dr. Agudelo, and will proceed with plans to transfer patient to another facility for ECT treatments to treat the catatonia. Discussed medications with Dr. Keyes, patient vitals tolerating current ativan dose of 2 mg Q4Hr. Discussed plans to taper Depakote at this time. Should patient switch to melba, it may be favorable for management of acute catatonia as it would help with appetite as there is concern for patient lacking oral intake. Plans for NG tube placement. Once NG tube in place, we will likely start regimen of lithium and pamelor along with scheduled ativan in lieu of ECT treatment. Will consider use of memantine as well after review of literature. May consider use of dizaepam drip. Prognosis is guarded at this time. Mental status exam: General Appearance: Catatonic, laying on her back, head titled, immobile, breathing loudly with mouth open. Catalepsy. Behavior: Laying on her back in bed, catatonic, mutism, immobility. Able to place arm in bizarre posture and it is held. Speech: Mutism. Mood/Affect: Flat affect Suicidality/Homicidality: Unable to assess due to catatonia Perceptions: Unable to assess due to catatonia Though content/process: Unable to assess due to catatonia Memory and concentration: Unable to assess due to catatonia Judgment and insight: Unable to assess due to catatonia IMPRESSIONS: Catatonia Bipolar disorder Elevated CK, mild and trending down Poor oral intake PLAN: -At this time patient DOES require inpatient psychiatric admission, however she is not appropriate for the psychiatry unit at this time due to the severity of her catatonic symptoms and inability to attends to her basic needs. -Patient DOES NOT have decision making capacity at this time and is unable to reason through and communicate/appreciate the risks, benefits and alternatives to treatment. -Delirium precautions recommended with patient including - avoiding use of narcotics and ONLINE ACTIVIST sedatives, limit anticholinergic medications when possible, frequent re-orientation, minimize use of restraints, open window shades during the day and close them at night -Would recommend the following medication changes/additions: Continue Ativan to 2 mg IV Q4H scheduled for catatonia. Closely monitor vitals signs and hold for SBP less than 100, DBP less than 60, HR less than 60, or RR less than 8. Decrease Valproate sodium back to 500 mg IV HS for mood stabilization/catatonia. Monitor ammonia and check Depakote level 92.6. Will taper. Taper Ambien to 5 mg QHS. Once NG tube placed, we will initiate treatment with pamelor/lithium combination. -Recommend transferring to psychiatric facility that does ECT. Discussed with Dr. Keyes today. -Fall precautions -Continue to reassess safety and initiate 1:1 sitter if safety concerns arise. -Cannot leave AMA at this time. Patient will need a petition and certification if attempting to leave AMA. -When medically stable and when patient's catatonia has resolved to the point she can attend to her basic needs, patient may eligible for transfer to a psych bed when available. -Communicated plan to patient's nurse. -Will continue to follow along. -Please contact with any questions. Vital Signs Temp 98.1 F 06/06/22 07:25 Pulse 100 06/06/22 08:55 Resp 20 06/06/22 08:55 BP 103/69 06/06/22 07:25 Pulse Ox 95 06/06/22 07:25 FiO2 Intake & Output 06/05/22 06/06/22 06/06/22 18:59 06:59 18:59 Intake Total 0 Output Total 450 1250 400 Balance -450 -1250 -400 Intake: Oral 0 Output: Urine 450 1250 400 Other: Voiding Method External Catheter External Catheter External Catheter # Voids 1 1 Laboratory Results WBC 8.37 X 10*3/uL (4.50-10.00) 06/03/22 05:22 RBC 3.89 X 10*6/uL (4.10-5.20) L 06/03/22 05:22 Hgb 11.4 g/dL (12.0-15.0) L 06/03/22 05:22 Hct 34.9 % (37.2-46.3) L 06/03/22 05:22 MCV 89.7 fL (80.0-97.0) 06/03/22 05:22 MCH 29.3 pg (27.0-32.0) 06/03/22 05:22 MCHC 32.7 g/dL (32.0-37.0) 06/03/22 05:22 RDW 13.8 % (11.5-14.5) 06/03/22 05:22 Plt Count 273 X 10*3/uL (140-440) 06/03/22 05:22 MPV 10.9 fL (9.5-12.2) 06/03/22 05:22 Immature Gran % (Auto) 0.4 % 06/03/22 05:22 Absolute Nucleated RBC 0 X 10*3/uL (0.00-0.00) 06/03/22 05:22 Neutrophils % 76.0 % 06/03/22 05:22 Lymphocytes % 14.8 % 06/03/22 05:22 Monocytes % 7.2 % 06/03/22 05:22 Eosinophils % 1.2 % 06/03/22 05:22 Basophils % 0.4 % 06/03/22 05:22 Immature Gran # 0.03 X 10*3/uL (0.00-0.04) 06/03/22 05:22 Neutrophils # 6.37 X 10*3/uL (1.80-7.70) 06/03/22 05:22 Lymphocytes # 1.24 X 10*3/uL (0.90-5.00) 06/03/22 05:22 Monocytes # 0.60 X 10*3/uL (0.20-1.00) 06/03/22 05:22 Eosinophils # 0.10 X 10*3/uL (0.04-0.35) 06/03/22 05:22 Basophils # 0.03 X 10*3/uL (0.00-0.10) 06/03/22 05:22 NRBC/100 WBC Diff 0 /100 WBCS (0.0-0.0) 06/03/22 05:22 Sodium 139 mmol/L (137-145) 06/06/22 04:33 Potassium 3.8 mmol/L (3.5-5.1) 06/06/22 04:33 Chloride 109 mmol/L (98-107) H 06/06/22 04:33 Carbon Dioxide 24 mmol/L (22-30) 06/06/22 04:33 Anion Gap 6 mmol/L 06/06/22 04:33 BUN 15 mg/dL (7-17) 06/06/22 04:33 Creatinine 0.58 mg/dL (0.52-1.04) 06/06/22 04:33 Est GFR (CKD-EPI)AfAm >90 (>60 ml/min/1.73 sqM) 06/06/22 04:33 Est GFR (CKD-EPI)NonAf >90 (>60 ml/min/1.73 sqM) 06/06/22 04:33 BUN/Creatinine Ratio 13.71 Ratio (12.00-20.00) 06/03/22 05:22 Glucose 90 mg/dL (74-99) 06/06/22 04:33 Calcium 8.6 mg/dL (8.4-10.2) 06/06/22 04:33 Magnesium 2.2 mg/dL (1.6-2.3) 06/06/22 04:33 Ammonia 28 umol/L (<30) 06/06/22 04:33 Creatine Kinase 251 U/L (26-186) H 06/04/22 06:18 Valproic Acid 92.6 ug/mL 06/06/22 04:33 Allergies Allergy/AdvReac Type Severity Reaction Status Date / Time amoxicillin Allergy Rash/Hives Verified 05/31/22 00:36 carbamazepine [From Tegretol] Allergy Unknown Verified 05/31/22 00:36 fluphenazine enanthate Allergy Unknown Verified 05/31/22 00:36 [From Prolixin] fluphenazine HCl Allergy Unknown Verified 05/31/22 00:36 [From Prolixin] olanzapine [From Zyprexa] Allergy Unknown Verified 05/31/22 00:36
[2022-06-06] MEDS: ZOLPIDEM 5 MG TAB PO SCH (20:15)
[2022-06-07] MEDS: LORazepam 2 MG/ML INJ IV SCH ×6 (00:10→20:16)
[2022-06-07] MEDS: ACETAMINOPHEN TAB 325 MG TAB PO PRN (08:12)
[2022-06-07] MEDS: ENOXAPARIN 40 MG/0.4 ML SYRINGE SQ SCH (08:13)
--- NOTE | 2022-06-07 09:44 | P.PN ---
Subjective Progress Note Date: 06/07/22 Patient is harder to arouse today, also had low grade fever since starting tube feeds overnight. Suspect aspiration Gen: in no apparent distress, resting comfortably in bed Eyes: PERRL, no scleral injection or icterus HENT: normocephalic, atraumatic, good hearing acuity, dry mucous membranes Neck: no tracheal deviation, full range of motion Resp: good air exchange, breathing comfortably with no accessory muscle use, no tactile fremitus, clear to auscultation bilaterally CVS: good distal perfusion x 4, no pitting edema, tachycardic, regular, no murmurs GI: soft, NTTP, ND, no hepatosplenomegaly, normal bowel sounds : no suprapubic tenderness, no CVAT, irvin catheter not present MSK: no clubbing, no cyanosis, no noted contractures of extremities Skin: no noted rashes, petechiae; temperature of skin is appropriate Neuro: moving all extremities without signs of weakness, CN II-XII intact Psych: Catatonia with waxy rigidity, impaired insight and judgment Hospital course: 52-year-old woman with a medical history of bipolar disorder presented as a transfer from [facility] under petition certification for worsening psychiatric symptoms. Medicine was consulted for medical clearance of this patient. However, medicine was later contacted given patient's dehydration status, poor by mouth intake, severe catatonia. They requested transfer to the medical floor for IV fluids as well as IV Ativan to break catatonia. Upon evaluation, patient was afebrile, 117/72, heart rate 105, 95% on room air. CBC reviewed from this morning shows leukocytosis to 14.4, chemistries show 134 sodium, CO2 of 21, BUN 21, creatinine of 0.88. Calcium is 10.4. Liver function tests show total bilirubin of 1.5. CK is 604. Vitamin B-12 was 454, folate was 30.8. UA shows cloudy appearance with trace protein, large blood, 8 red blood cells, 6 white blood cells, rare bacteria. [place] level was 1.3 this morning. Treponema antibody was nonreactive. EKG shows sinus tachycardia with left axis deviation, good R-wave progression, no signs of ischemia. Assessment: Dehydration secondary to poor by mouth intake Fever Catatonia Bipolar disorder Plan: Vital signs reviewed, 100.9, 109/68, 102, 96% on room air Order basic metabolic panel, magnesium for tomorrow LR can be discontinued and switched to D5/0.45NS at 100cc/hr Holding IV Ativan 2 mg every 4 hours scheduled for increased somnolence today CXR to rule out aspiration pneumonia and ensure good placement of NGT Agree with Depakote 500 mg twice a day Agree with Ambien 10 mg at bedtime Patient is full code Objective - Vital Signs Vital signs: Vital Signs Temp 100.9 F H 06/07/22 07:47 Pulse 102 H 06/07/22 07:47 Resp 22 06/07/22 07:47 BP 109/68 06/07/22 07:47 Pulse Ox 96 06/07/22 07:47 FiO2 Intake & Output 06/06/22 06/07/22 06/07/22 18:59 06:59 18:59 Output Total 400 Balance -400 Weight 65 kg 66.2 kg Output: Urine 400 Other: Voiding Method External Catheter External Catheter # Voids 1 - Labs CBC & Chem 7: 06/03/22 05:22 06/06/22 04:33
[2022-06-07 10:02] LABS: Magnesium 2.4 mg/dL (1.5-2.4)
[2022-06-07 10:05] LABS: African American GFR (CKD) 123.2 (60.0-200.0); Anion Gap 10.6 mmol/L (10.00-18.00); Blood Urea Nitrogen 17.4 mg/dL (9.0-27.0); Calcium 9.1 mg/dL (8.7-10.3); Carbon Dioxide 23.4 mmol/L (20.0-27.5); Non-African American GFR(CKD) 106.3 (60.0-200.0)
--- NOTE | 2022-06-07 10:38 | XR ---
EXAMINATION TYPE: XR chest 1V portable DATE OF EXAM: 06/07/2022 COMPARISON: NONE HISTORY: Fever TECHNIQUE: Single frontal view of the chest is obtained. FINDINGS: There is no focal air space opacity, pleural effusion, or pneumothorax seen. The cardiac silhouette size is within normal limits. The osseous structures are intact. NG tube coursing in the left upper quadrant. Faint nodular density right lung apex could be related to the anterior margin o f first rib. No prior exams available for comparison. IMPRESSION: No acute process. Nodular prominence seen in the right apex may be related to prominent anterior marginal first rib. Follow-up x-ray with apical lordotic view could be obtained for confirma tion.
[2022-06-07] MEDS: LACTATED RINGERS 1,000 ML IV SCH (11:38)
--- NOTE | 2022-06-07 12:21 | P.PN ---
Progress Note - Text Progress Note Date: 06/07/22 On 06/05, I was informed by the psychiatry service that patient would warrant transfer to a facility with ECT in order to treat her refractory catatonia. I called [facility] for transfer, however, they said that they did not have any beds available for several months, and are unable to occupy this patient at this time. They gave me a list of facilities that do ECT in the [facility] which are very limited in general. I proceeded to call [facility], who also recommended to me that they did not have any bed availability and would not be accepting patients at this time. I then followed up at the [facility], who also informed me that patient could not be accepted at this time due to bed availability. I followed up with her psychiatrist, who attempted to call [facility] again to express the need for ECT for this patient and our inability in this facility to provide her this procedure, however, she was also informed that [facility] would not be able to accommodate this patient at this time (see her note for further details.) I subsequently asked our case management assistant to reach out to the remaining facilities that do ECT in the [facility], and she was unable to find any system that had bed availability and could accept the patient for transfer despite her medical necessity. On 06/06, I had a conversation with patient's daughter and daughter's boyfriend who came to bedside for updated information about patient's care. I informed them of our attempts to contact other facilities for transfer for ECT, and that we will continue to reach out to them to try and get patient transferred for appropriate level of care, however, we have not been successful so far. Regarding the care that we can offer here at our facility, I advised that were treating our patient to the maximum of our ability given our resources, and will continue to do so. I did go ahead and update them about the medical necessity for an NG tube for enteral feeding given her significantly poor by mouth intake over the last week, ongoing need for IV Ativan due to worsening catatonia, and they expressed understanding of her medical and mental health condition. They expressed interest in taking over guardianship in order to start the process of obtaining a court order consent for ECT therapy should bed availability open up. The family seemed very supportive of the patient, and motivated to seek care for the patient as best as appropriate and available.
[2022-06-07] MEDS: DEXTROSE 5%-0.45% NACL 1,000 ML IV SCH (12:31)
--- NOTE | 2022-06-07 14:00 | P.PN ---
Progress Note - Text Progress Note Date: 06/07/22 Interval History: Patient was seen resting in bed with NG tube in place. Makayla Maxime scale of 25 (with new factors of autonomic instability including low grade fevers, tachycardia, and tachypnea). Patient continues to be minimally responsive to external stimuli. Concern for aspiration due to NG tube placement and low grade fevers however CXR revealed no abnormality. This provider contacted [facility] ECT referral service at [phone]. This provider faxed over a referral letter including previous treatment utilized and reasons for need for ECT to the fax number provided [phone]. I was also directed to speak with Psychiatric emergency at [phone] who then directed me to Psychiatric consult [phone]. I spoke with Kristina who informed me that [facility] does not take out of hospital referrals due to volume at this time. However it was explained to her that the patient is exhibiting signs of malignant catatonia and we are no longer seeking inpatient psychiatric placement but medical placement to a facility that can utilize ECT as she is too medically unstable for an inpatient psychiatric bed due to autonomic instability, lack of oral intake requiring NG tube placement, and concern for malignant catatonia. It was recommended possibly utilizing medical transfer. She informed this provider that Psychiatry at [facility] has utilized ECT on patients on medical floors in their hospital. Mental Status Exam: General Appearance: Catatonic, laying on her back, head titled, immobile, breathing loudly with mouth open. Catalepsy. Behavior: Laying on her back in bed, catatonic, mutism, immobility. Speech: Mutism. Mood/Affect: Somnolent. Unarousable. Suicidality/Homicidality: Unable to assess due to catatonia Perceptions: Unable to assess due to catatonia Though content/process: Unable to assess due to catatonia Memory and concentration: Unable to assess due to catatonia Judgment and insight: Unable to assess due to catatonia Vital Signs Temp 99.8 F H 06/07/22 12:27 Pulse 100 06/07/22 12:27 Resp 20 06/07/22 12:27 BP 157/98 06/07/22 12:27 Pulse Ox 97 06/07/22 12:27 FiO2 Intake & Output 06/06/22 06/07/22 06/07/22 18:59 06:59 18:59 Intake Total 90 Output Total 400 Balance -400 90 Weight 65 kg 66.2 kg Intake: Tube Feeding 90 Output: Urine 400 Other: Voiding Method External Catheter External Catheter External Catheter # Voids 1 Laboratory Results WBC 8.37 X 10*3/uL (4.50-10.00) 06/03/22 05:22 RBC 3.89 X 10*6/uL (4.10-5.20) L 06/03/22 05:22 Hgb 11.4 g/dL (12.0-15.0) L 06/03/22 05:22 Hct 34.9 % (37.2-46.3) L 06/03/22 05:22 MCV 89.7 fL (80.0-97.0) 06/03/22 05:22 MCH 29.3 pg (27.0-32.0) 06/03/22 05:22 MCHC 32.7 g/dL (32.0-37.0) 06/03/22 05:22 RDW 13.8 % (11.5-14.5) 06/03/22 05:22 Plt Count 273 X 10*3/uL (140-440) 06/03/22 05:22 MPV 10.9 fL (9.5-12.2) 06/03/22 05:22 Immature Gran % (Auto) 0.4 % 06/03/22 05:22 Absolute Nucleated RBC 0 X 10*3/uL (0.00-0.00) 06/03/22 05:22 Neutrophils % 76.0 % 06/03/22 05:22 Lymphocytes % 14.8 % 06/03/22 05:22 Monocytes % 7.2 % 06/03/22 05:22 Eosinophils % 1.2 % 06/03/22 05:22 Basophils % 0.4 % 06/03/22 05:22 Immature Gran # 0.03 X 10*3/uL (0.00-0.04) 06/03/22 05:22 Neutrophils # 6.37 X 10*3/uL (1.80-7.70) 06/03/22 05:22 Lymphocytes # 1.24 X 10*3/uL (0.90-5.00) 06/03/22 05:22 Monocytes # 0.60 X 10*3/uL (0.20-1.00) 06/03/22 05:22 Eosinophils # 0.10 X 10*3/uL (0.04-0.35) 06/03/22 05:22 Basophils # 0.03 X 10*3/uL (0.00-0.10) 06/03/22 05:22 NRBC/100 WBC Diff 0 /100 WBCS (0.0-0.0) 06/03/22 05:22 Sodium 138 mmol/L (135-145) 06/07/22 05:42 Potassium 4.0 mmol/L (3.5-5.5) 06/07/22 05:42 Chloride 104 mmol/L (96-109) 06/07/22 05:42 Carbon Dioxide 23.4 mmol/L (20.0-27.5) 06/07/22 05:42 Anion Gap 10.60 mmol/L (10.00-18.00) 06/07/22 05:42 BUN 17.4 mg/dL (9.0-27.0) 06/07/22 05:42 Creatinine 0.6 mg/dL (0.6-1.5) 06/07/22 05:42 Est GFR (CKD-EPI)AfAm 123.2 (60.0-200.0) 06/07/22 05:42 Est GFR (CKD-EPI)NonAf 106.3 (60.0-200.0) 06/07/22 05:42 BUN/Creatinine Ratio 29.00 Ratio (12.00-20.00) H 06/07/22 05:42 Glucose 110 mg/dL (70-110) 06/07/22 05:42 Calcium 9.1 mg/dL (8.7-10.3) 06/07/22 05:42 Magnesium 2.4 mg/dL (1.5-2.4) 06/07/22 05:42 Ammonia 28 umol/L (<30) 06/06/22 04:33 Creatine Kinase 251 U/L (26-186) H 06/04/22 06:18 Valproic Acid 92.6 ug/mL 06/06/22 04:33 Assessment Catatonia Bipolar 1 disorder Plan: -At this time patient DOES NOT QUALIFY for psychiatric admission due to medical complications. She DOES require medical admission for autonomic instability, lack of oral feeding requiring NG tube placement, and concerns for malignant catatonia. -Patient DOES NOT have decision making capacity at this time and is unable to reason through and communicate/appreciate the risks, benefits and alternatives to treatment. -Delirium precautions recommended with patient including - avoiding use of narcotics and COMPUTING CONSULTANT sedatives, limit anticholinergic medications when possible, frequent re-orientation, minimize use of restraints, open window shades during the day and close them at night. -Patient is under deferral status as she was able to defer prior to deterioration of her mental health. She was also adherent with oral medications prior to worsening catatonia. Patient and/or patient contact center representative may sign out AMA if they do understand the risks, benefits, and treatment alternatives. Risks include further deterioration including debility and . Benefits include possible admission to facility that can utilize treatment with ECT. ECT is not available in our facility however we will continue to utilize all resources to manage and treat the condition while patient is admitted to our service including maximizing ativan, consideration for diazepam. -Would recommend the following medication changes/additions: Increase ativan to 3 mg IV Q4H scheduled for catatonia (daily dose now at 18 mg, as per literature there have been doses up to 30 mg per day if necessary). Closely monitor vitals signs and hold for SBP less than 100, DBP less than 60, HR less than 60, or RR less than 8. Valproate sodium 500 mg IV HS for mood stabilization/catatonia. Monitor ammonia and check Depakote level 92.6. Tapered from 1000 due to high normal value. Continue Ambien 5 mg QHS. Will consider initiation of pamelor and lithium tomorrow. -Recommend transferring to psychiatric facility that does ECT. See note above regarding [facility]. Discussed with Dr. Keyes today. -Continue to reassess safety and initiate 1:1 sitter if safety concerns arise. -Psychiatry will continue to follow.
[2022-06-07] MEDS: VALPROATE SODIUM 500 MG in SODIUM CHLORIDE 0.9% 100 ML IVPB SCH (20:15)
[2022-06-07] MEDS: ZOLPIDEM 5 MG TAB PO SCH (20:16)
[2022-06-08] MEDS: LORazepam 2 MG/ML INJ IV SCH ×4 (00:08→12:04)
[2022-06-08] MEDS: DEXTROSE 5%-0.45% NACL 1,000 ML IV SCH ×3 (00:08→18:53)
[2022-06-08] MEDS: ACETAMINOPHEN TAB 325 MG TAB PO PRN (06:31)
[2022-06-08] MEDS: ENOXAPARIN 40 MG/0.4 ML SYRINGE SQ SCH (07:57)
[2022-06-08 09:36] LABS: Basophils # (A) 0.01 X 10*3/uL (0.00-0.10); Basophils % (A) 0.1 %; Eosinophils # (A) 0.04 X 10*3/uL (0.04-0.35); Eosinophils % (A) 0.3 %; HGB 11.5 g/dL (12.0-15.0); Lymphocytes # (A) 0.56 X 10*3/uL (0.90-5.00); Lymphocytes % (A) 4.8 %; MCHC 31.9 g/dL (32.0-37.0); MCV 90.7 fL (80.0-97.0); Mean Platelet Volume 11.4 fL (9.5-12.2); Monocytes # (A) 0.77 X 10*3/uL (0.20-1.00); Monocytes % (A) 6.5 %; NRBC Per 100 WBC 0 /100 WBCS (0.0-0.0); Neutrophils # (A) 10.35 X 10*3/uL (1.80-7.70); Platelet Count 210 X 10*3/uL (140-440); RBC 3.97 X 10*6/uL (4.10-5.20); RDW 13.7 % (11.5-14.5); WBC 11.77 X 10*3/uL (4.50-10.00)
[2022-06-08 09:37] LABS: Immature Grans, Automated 0.3 %
[2022-06-08 10:10] LABS: African American GFR (CKD) 122.3 (60.0-200.0); Anion Gap 10.4 mmol/L (10.00-18.00); BUN/Creat Ratio 20.07 Ratio (12.00-20.00); Blood Urea Nitrogen 12.3 mg/dL (9.0-27.0); Calcium 8.8 mg/dL (8.7-10.3); Carbon Dioxide 24.9 mmol/L (20.0-27.5); Magnesium 2.3 mg/dL (1.5-2.4); Non-African American GFR(CKD) 105.5 (60.0-200.0)
[2022-06-08 12:46] VITALS: BMI 26.3
[2022-06-08 13:25] LABS: Glucose,Whole Blood 124 mg/dL (70-110)
--- NOTE | 2022-06-08 13:53 | P.PN ---
Progress Note - Text Progress Note Date: 06/08/22 Interval History: Patient was seen resting in bed with NG tube in place. Currently, the patient continues to be unresponsive to any external stimuli. Present in the patient's room his family including patient's nieces. No reported changes aside from concern for the patient's autonomic instability. The patient has been to, tachycardic, and displaying fevers with no source of infection. Reportedly, the patient is scheduled for transfer medically to the [facility]. Mental Status Exam: General Appearance: Catatonic, laying on her back, head titled, immobile, breathing loudly with mouth open. Catalepsy. Behavior: Laying on her back in bed, catatonic, mutism, immobility. Tachypnea. Speech: Mutism. Mood/Affect: Somnolent. Unarousable. Suicidality/Homicidality: Unable to assess due to catatonia Perceptions: Unable to assess due to catatonia Though content/process: Unable to assess due to catatonia Memory and concentration: Unable to assess due to catatonia Judgment and insight: Unable to assess due to catatonia Vital Signs Temp 100.3 F H 06/08/22 13:20 Pulse 103 H 06/08/22 13:40 Resp 39 H 06/08/22 13:40 BP 135/82 06/08/22 13:40 Pulse Ox 96 06/08/22 13:40 FiO2 21 06/08/22 08:02 Intake & Output 06/07/22 06/08/22 06/08/22 18:59 06:59 18:59 Intake Total 220 Balance 220 Weight 67.5 kg 67.5 kg Intake: Tube Feeding 220 Other: Voiding Method External Catheter External Catheter External Catheter Laboratory Results WBC 11.77 X 10*3/uL (4.50-10.00) H 06/08/22 04:43 RBC 3.97 X 10*6/uL (4.10-5.20) L 06/08/22 04:43 Hgb 11.5 g/dL (12.0-15.0) L 06/08/22 04:43 Hct 36.0 % (37.2-46.3) L 06/08/22 04:43 MCV 90.7 fL (80.0-97.0) 06/08/22 04:43 MCH 29.0 pg (27.0-32.0) 06/08/22 04:43 MCHC 31.9 g/dL (32.0-37.0) L 06/08/22 04:43 RDW 13.7 % (11.5-14.5) 06/08/22 04:43 Plt Count 210 X 10*3/uL (140-440) 06/08/22 04:43 MPV 11.4 fL (9.5-12.2) 06/08/22 04:43 Immature Gran % (Auto) 0.3 % 06/08/22 04:43 Absolute Nucleated RBC 0 X 10*3/uL (0.00-0.00) 06/08/22 04:43 Neutrophils % 88.0 % 06/08/22 04:43 Lymphocytes % 4.8 % 06/08/22 04:43 Monocytes % 6.5 % 06/08/22 04:43 Eosinophils % 0.3 % 06/08/22 04:43 Basophils % 0.1 % 06/08/22 04:43 Immature Gran # 0.04 X 10*3/uL (0.00-0.04) 06/08/22 04:43 Neutrophils # 10.35 X 10*3/uL (1.80-7.70) H 06/08/22 04:43 Lymphocytes # 0.56 X 10*3/uL (0.90-5.00) L 06/08/22 04:43 Monocytes # 0.77 X 10*3/uL (0.20-1.00) 06/08/22 04:43 Eosinophils # 0.04 X 10*3/uL (0.04-0.35) 06/08/22 04:43 Basophils # 0.01 X 10*3/uL (0.00-0.10) 06/08/22 04:43 NRBC/100 WBC Diff 0 /100 WBCS (0.0-0.0) 06/08/22 04:43 Sodium 139 mmol/L (135-145) 06/08/22 04:43 Potassium 4.0 mmol/L (3.5-5.5) 06/08/22 04:43 Chloride 104 mmol/L (96-109) 06/08/22 04:43 Carbon Dioxide 24.9 mmol/L (20.0-27.5) 06/08/22 04:43 Anion Gap 10.40 mmol/L (10.00-18.00) 06/08/22 04:43 BUN 12.3 mg/dL (9.0-27.0) 06/08/22 04:43 Creatinine 0.6 mg/dL (0.6-1.5) 06/08/22 04:43 Est GFR (CKD-EPI)AfAm 122.3 (60.0-200.0) 06/08/22 04:43 Est GFR (CKD-EPI)NonAf 105.5 (60.0-200.0) 06/08/22 04:43 BUN/Creatinine Ratio 20.07 Ratio (12.00-20.00) H 06/08/22 04:43 Glucose 156 mg/dL (70-110) H 06/08/22 04:43 POC Glucose (mg/dL) 124 mg/dL (70-110) H 06/08/22 13:22 POC Glu Nitrate Operator [place] 06/08/22 13:22 Calcium 8.8 mg/dL (8.7-10.3) 06/08/22 04:43 Magnesium 2.3 mg/dL (1.5-2.4) 06/08/22 04:43 Ammonia 28 umol/L (<30) 06/06/22 04:33 Creatine Kinase 251 U/L (26-186) H 06/04/22 06:18 Valproic Acid 92.6 ug/mL 06/06/22 04:33 Coronavirus (PCR) Not Detected (Not Detectd) 06/07/22 14:05 Assessment Catatonia Bipolar 1 disorder Plan: -At this time patient DOES NOT QUALIFY for psychiatric admission due to medical complications. She DOES require medical admission for autonomic instability, lack of oral feeding requiring NG tube placement, and concerns for malignant catatonia. -Patient DOES NOT have decision making capacity at this time and is unable to reason through and communicate/appreciate the risks, benefits and alternatives to treatment. -Patient is under deferral status as she was able to defer prior to deterioration of her mental health. She was also adherent with oral medications prior to worsening catatonia. Patient and/or patient solar sales representative and assessor may sign out AMA if they do understand the risks, benefits, and treatment alternatives. Risks include further deterioration including debility and . Benefits include possible admission to facility that can utilize treatment with ECT. ECT is not available in our facility however we will continue to utilize all resources to manage and treat the condition while patient is admitted to our service including maximizing ativan, consideration for diazepam. -Would recommend the following medication changes/additions: Continue ativan 3 mg IV Q4H scheduled for catatonia (daily dose now at 18 mg, as per literature there have been doses up to 30 mg per day if necessary). Closely monitor vitals signs and hold for SBP less than 100, DBP less than 60, HR less than 60, or RR less than 8. Valproate sodium 500 mg IV HS for mood stabilization/catatonia. Continue Ambien 5 mg QHS. -Recommend transferring to psychiatric facility that does ECT. Patient accepted as a medical transfer to the [facility]. -Continue to reassess safety and initiate 1:1 sitter if safety concerns arise. -Psychiatry will continue to follow.
--- NOTE | 2022-06-08 14:24 | P.PN ---
Subjective Progress Note Date: 06/08/22 Hospital Course: 52-year-old woman with a medical history of bipolar disorder presented as a transfer from [facility] under petition certification for worsening psychiatric symptoms. Medicine was consulted for medical clearance of this patient. However, medicine was later contacted given patient's dehydration status, poor by mouth intake, severe catatonia. They requested transfer to the medical floor for IV fluids as well as IV Ativan to break catatonia. Upon evaluation, patient was afebrile, 117/72, heart rate 105, 95% on room air. reviewed from this morning shows leukocytosis to 14.4, chemistries show 134 sodium, CO2 of 21, BUN 21, creatinine of 0.88. Calcium is 10.4. Liver function tests show total bilirubin of 1.5. CK is 604. Vitamin B-12 was 454, folate was 30.8. UA shows cloudy appearance with trace protein, large blood, 8 red blood cells, 6 white blood cells, rare bacteria. [place] level was 1.3 this morning. Treponema antibody was nonreactive. EKG shows sinus tachycardia with left axis deviation, good R-wave progression, no signs of ischemia. Patient needs to remain in a catatonic, plan for transfer to [facility]. Currently having significant autonomic dysfunction, being transferred to the medical ICU. Subjective: Patient seen and examined at bedside. Overnight, urinary output has dropped. He remains febrile, tachycardic, tachypneic. Blood pressure has been stable. However, per nursing she also has periods of apnea. Remains unresponsive and catatonic Vitals Signs Reviewed. Gen: Tachypnea Eyes: PERRL, no scleral injection or icterus HENT: normocephalic, atraumatic, dry mucous membranes Neck: no tracheal deviation, full range of motion Resp: good air exchange, breathing comfortably with no accessory muscle use, clear to auscultation bilaterally CVS: good distal perfusion x 4, no pitting edema, tachycardic, regular, no murmurs GI: soft, NTTP, ND, no hepatosplenomegaly, normal bowel sounds : no suprapubic tenderness, no CVAT MSK: no clubbing, no cyanosis, no noted contractures of extremities Skin: no noted rashes, petechiae Neuro: Does not open eyes spontaneously or moves her extremities Psych: Catatonia with waxy rigidity Data reviewed today: WBC 11.7, hemoglobin 11.5, sodium 139, creatinine 0.6, magnesium 2.3 Assessment and Plan: Patient is critically ill, being transferred to the medical ICU Active: Catatonia Autonomic dysfunction Febrile Tachypnea Tachycardia Bipolar disorder Dehydration Acute Urinary retention -ICU was consulted, had direct discussion with roller print tender, patient to be tra nsferred to the medical ICU for worsening autonomic dysfunction -Psychiatry note reviewed continue scheduled IV Ativan and valproic acid -Has significant autonomic dysfunction from catatonic state -Continue D5 half-normal at 100 mL an hour -Tylenol 650 mg every 6 hours as needed for fever -Had Valencia catheter placed today for urinary retention DVT ppx: Lovenox Code status: Full code Anticipated discharge place: [facility] Anticipated discharge time: When bed available Objective - Vital Signs Vital signs: Vital Signs Temp 100.3 F H 06/08/22 13:20 Pulse 103 H 06/08/22 13:40 Resp 39 H 06/08/22 13:40 BP 135/82 06/08/22 13:40 Pulse Ox 96 06/08/22 13:40 FiO2 21 06/08/22 08:02 Intake & Output 06/07/22 06/08/22 06/08/22 18:59 06:59 18:59 Intake Total 220 Balance 220 Weight 67.5 kg 67.5 kg Intake: Tube Feeding 220 Other: Voiding Method External Catheter External Catheter External Catheter - Labs CBC & Chem 7: 06/08/22 04:43 06/08/22 04:43 Labs: Abnormal Lab Results - Last 24 Hours (Table) 06/08/22 06/08/22 06/08/22 Range/Units 04:43 04:43 13:22 WBC 11.77 H (4.50-10.00) X 10*3/uL RBC 3.97 L (4.10-5.20) X 10*6/uL Hgb 11.5 L (12.0-15.0) g/dL Hct 36.0 L (37.2-46.3) % MCHC 31.9 L (32.0-37.0) g/dL Neutrophils # 10.35 H (1.80-7.70) X 10*3/uL Lymphocytes # 0.56 L (0.90-5.00) X 10*3/uL BUN/Creatinine Ratio 20.07 H (12.00-20.00) Ratio Glucose 156 H (70-110) mg/dL POC Glucose (mg/dL) 124 H (70-110) mg/dL
--- NOTE | 2022-06-08 14:26 | P.PN ---
Progress Note - Text Progress Note Date: 06/08/22 Had direct conversation with [facility] transfer center, no beds available today. I have personally expressed the concern of further decline given autonomic dysfunction as well as transfer to the medical ICU. Per transfer center, no beds available today, will likely have bed during the weekend or early next week. We will continue to follow up with [facility].
[2022-06-08] MEDS ORDERED: propofoL 100 ML IV ONE (14:39)
[2022-06-08] MEDS ORDERED: SUCCINYLCHOLINE CHLORIDE 200 MG/10 ML VIAL IV ONE (14:39)
--- NOTE | 2022-06-08 15:49 | XR ---
EXAMINATION TYPE: XR chest 1V portable DATE OF EXAM: 06/08/2022 COMPARISON: 06/07/2022 HISTORY: ET tube placement TECHNIQUE: Single frontal view of the chest is obtained. FINDINGS: There is no focal air space opacity, pleural effusion, or pneumothorax seen. The cardiac silhouette size is within normal limits. The osseous structures are intact. ET tube 3.4 cm above jannette. NG tube appears in good position coursing in the left upper quadrant. Ce ntral line seen with the tip overlying the cavoatrial junction. IMPRESSION: 1. ET and NG tube appear in good position as discussed above.
--- NOTE | 2022-06-08 15:50 | P.CNNES ---
History of Present Illness Consult date: 06/08/22 Requesting physician: Keya Ortiz Reason for Consult: malignant catatonia History of Present Illness: This a 52-year-old woman with history of bipolar order who was transferred to [facility] because a worsening of her psychiatric symptoms. Neurology is consulted because a worsening of catatonia. History was obtained from medical record as well as the patient ICU nurse. While in our facility was felt the patient will was at an catatonia and she was getting IV Ativan as high as 3 mg every 4 hours without any improvement. Patient was pending to be transferred to [facility] for ECT. This admission the patient required NG tube. It seems since the last 2 days patient has been having fevers as high as 102.2. He said tachycardia As high as 40s. As a result ICU team intubated her to protect her airway and the patient was started on IV propofol drip. No seizure- like activity was noted that was notified by the nurse or even the primary team during this admission. Some other workup during his hospital visit consisted of: Since 06/02/2022 patient is been afebrile until 06/06/22 had low-grade fever but since yesterday fever got as high as 102.2 Fahrenheit to pulse ox went down to 90 L at room air. White blood cell on 06/03/2022 was 8.37 thousand but most recent one is 11.7 thousand Her CK level was 251 on 06/04/2022. It is slightly/mildly elevated normal is 26-186 Review of Systems Review of system is limited but the prone positive and negative as per HPI. Past Medical History Past Medical History: No Reported History History of Any Multi-Drug Resistant Organisms: None Reported Past Surgical History: Breast Surgery, Orthopedic Surgery Additional Past Surgical History / Comment(s): LEEP procedure, and scope vaginally. Breast augmentation. Left great toe surgery has jose and pins in it. Past Anesthesia/Blood Transfusion Reactions: No Reported Reaction Past Psychological History: Anxiety, Bipolar, Depression Smoking Status: Current every day smoker Past Alcohol Use History: Occasional Additional Past Alcohol Use History / Comment(s): Patient states that she smokes about 4 cigarettes a day. States she occasionally smokes marijuana and she lives with her friend Meseret. Denies any heroin or cocaine use. Denies any alcohol use. Past Drug Use History: Marijuana - Past Family History Father Family Medical History: Unable to Obtain Additional Family Medical History / Comment(s): unknown Mother Family Medical History: Pulmonary Embolus Additional Family Medical History / Comment(s): Mental Illness, she had Bipolar Depression. Medications and Allergies Home Medications Medication Instructions Recorded Confirmed Type Covelo Carbonate [Covelo 600 mg PO BID 10/23/21 06/02/22 History Carbonate ER] Allergies Allergy/AdvReac Type Severity Reaction Status Date / Time amoxicillin Allergy Rash/Hives Verified 05/31/22 00:36 carbamazepine [From Tegretol] Allergy Unknown Verified 05/31/22 00:36 fluphenazine enanthate Allergy Unknown Verified 05/31/22 00:36 [From Prolixin] fluphenazine HCl Allergy Unknown Verified 05/31/22 00:36 [From Prolixin] olanzapine [From Zyprexa] Allergy Unknown Verified 05/31/22 00:36 Physical Examination - Vital Signs Vital Signs: Vital Signs Temp Pulse Pulse Pulse Pulse Resp BP 06/08/22 15:20 06/08/22 14:50 06/08/22 14:48 06/08/22 13:40 103 H 39 H 135/82 06/08/22 13:20 100.3 F H 108 H 42 H 142/91 06/08/22 11:50 99.5 F 102 H 38 H 06/08/22 10:50 101.1 F H 06/08/22 08:24 102.2 F H 06/08/22 08:19 40 H 06/08/22 08:02 06/08/22 08:00 102 H 100 91 38 H 06/08/22 07:30 102.1 F H 70 40 H 06/08/22 04:00 100.5 F H 105 H 27 H 06/08/22 00:00 100.8 F H 106 H 27 H 06/07/22 19:55 100.2 F H 102 H 18 06/07/22 16:51 06/07/22 16:10 97.2 F L 102 H 20 BP BP Pulse Ox FiO2 06/08/22 15:20 50 06/08/22 14:50 100 06/08/22 14:48 100 06/08/22 13:40 96 06/08/22 13:20 90 L 06/08/22 11:50 129/79 97 06/08/22 10:50 06/08/22 08:24 06/08/22 08:19 06/08/22 08:02 94 L 21 06/08/22 08:00 06/08/22 07:30 128/76 96 06/08/22 04:00 133/82 98 06/08/22 00:00 146/75 96 06/07/22 19:55 131/87 95 06/07/22 16:51 96 06/07/22 16:10 142/87 95 Intake and Output 06/08/22 06/08/22 06/08/22 06:59 14:59 22:59 Other: Voiding Method External Catheter Weight 67.5 kg 67.5 kg GENERAL: The patient is lying in bed and does not appear in acute distress. CHEST: The heart rate is regular rate rhythm. No murmurs to auscultation. LUNG: Clear to auscultation bilaterally no wheezing noted throughout. Not lab ored breathing. Intubated on ventilator. ABDOMEN/GI: Bowel sounds present in all 4 quadrants. No tenderness to palpation throughout. NEUROLOGICAL: Limited because of her condition. Is on IV Propofol 25mcg/kg/min Higher mental function: The patient is comatose. Cranial nerves: I manually opened her eyes and primary gaze is midline. The pupils are round, equal and reactive to light. Has positive corneal reflex bilaterally. Is breathing over the vent. Has positive cough reflex. Motor: The strength is hard to assess. No spontaneous movement. Decrease tone throughout. Has normal bulk. Cerebellum: Unable to assess.. Sensation: Unable to assess light touch. Reflexes (right/left): 2+ throughout except ankles are 1+ Plantars are mute bilaterally. Results - Laboratory Findings CBC and BMP: 06/08/22 04:43 06/08/22 04:43 Abnormal Lab Findings: Abnormal Labs 06/03/22 06/03/22 06/04/22 05:22 05:22 06:18 WBC RBC 3.89 L Hgb 11.4 L Hct 34.9 L MCHC Neutrophils # Lymphocytes # Chloride Anion Gap 9.90 L BUN/Creatinine Ratio Glucose 112 H POC Glucose (mg/dL) Creatine Kinase 251 H 06/06/22 06/07/22 06/08/22 04:33 05:42 04:43 WBC 11.77 H RBC 3.97 L Hgb 11.5 L Hct 36.0 L MCHC 31.9 L Neutrophils # 10.35 H Lymphocytes # 0.56 L Chloride 109 H Anion Gap BUN/Creatinine Ratio 29.00 H Glucose POC Glucose (mg/dL) Creatine Kinase 06/08/22 06/08/22 04:43 13:22 WBC RBC Hgb Hct MCHC Neutrophils # Lymphocytes # Chloride Anion Gap BUN/Creatinine Ratio 20.07 H Glucose 156 H POC Glucose (mg/dL) 124 H Creatine Kinase Assessment and Plan Assessment: Altered mental status likely due to aspiration pneumonia. As well as a altered mentation because of medication use (Ativan) and catatonia Catatonia and not responsive to Ativan Bipolar type I Plan: I agree with the ICU team of pursuing CT of the head without. Once the patient is extubated recommend pursuing MRI of the brain with and without to rule out any intracranial process. Ordered urgent EEG to rule out any underlying seizure or discharges was seems unlikely. Pending TSH ordered by psych team. I ordered ammonia level and repeat CK level. We'll defer the rest the medical management to the psychiatry team and primary team ordered Patient is pending transfer to [facility] for escalation of care for her Catatonia. Plan was discussed with the ICU attending and nurse. Thank you for the consultation. Time with Patient: Greater than 30
[2022-06-08 16:02] LABS: ABG Base Excess 0.5 mmol/L; ABG HCO3 24 mmol/L (21-25); ABG PCO2 34 mmHg (35-45); ABG PH 7.47 (7.35-7.45); ABG PO2 147 mmHg (83-108); ABG TCO2 25 mmol/L (19-24)
[2022-06-08 16:04] LABS: Allen Test Performed? no
--- NOTE | 2022-06-08 16:17 | P.CNPUL ---
History of Present Illness Consult date: 06/08/22 Requesting physician: Dinesh Garza Reason for consult: other (Catatonic state, ICU management) Chief complaint: Altered mental status History of present illness: This is a 52-year-old female with history of bipolar disorder, patient was transferred from [facility] on 06/02/2022, mostly to be evaluated by psychiatry and to have a psychiatric admission. Apparently the patient was initially admitted with acute manic episode, and she went on to develop a catatonic picture. When the patient arrived to [facility], she was seen by psychiatry, and felt that the patient could not be admitted to the psychiatric [facility] mostly because of her dehydration status and she needed IV fluid she also needed IV Ativan for her catatonic state. Patient was being managed by internal medicine and by psychiatry since 06/02/2022, and she was receiving Ativan without any improvement. Patient was evaluated today by psychiatry and felt that the patient should be transferred to the [facility] for ECT. Over the last 2 days, patient has been noted to have fevers as high as 102.2, she was also noted to be tachypneic and tachycardic, I was notified about this patient by the internal medicine physician and she was developing more and more unresponsive this and to the point that she could not protect her airways and she had no gag reflex. I accepted the patient to transfer to the ICU, and as I went to see the patient she seemed to be in moderate respiratory distress, almost sounded stridorous, and she did not have any gag reflex. Patient had no response to any stimuli whatsoever. Hence I recommended intubation and mechanical ventilation. Upon visualization of her vocal cords, there was significant purulent secretions thick and tenacious required suctioning to visualize the vocal cords. Patient was intubated with a 7.5 endotracheal tube, and I consulted neurology on this patient for further evaluation of her neurological status. In the meantime patient was placed on propofol. Patient had very poor urine output overnight she was tachycardic and tachypneic overnight, however her blood pressure was stable. ABG post intubation showed a pO2 of 147 pCO2 34 pH of 7.47 and this was on 50% FiO2, assist control rate of 16 and tidal volume of 400. COVID-19 PCR was negative. Review of Systems ROS unobtainable: due to mental status Past Medical History Past Medical History: No Reported History History of Any Multi-Drug Resistant Organisms: None Reported Past Surgical History: Breast Surgery, Orthopedic Surgery Additional Past Surgical History / Comment(s): LEEP procedure, and scope vagina lly. Breast augmentation. Left great toe surgery has jose and pins in it. Past Anesthesia/Blood Transfusion Reactions: No Reported Reaction Past Psychological History: Anxiety, Bipolar, Depression Smoking Status: Current every day smoker Past Alcohol Use History: Occasional Additional Past Alcohol Use History / Comment(s): Patient states that she smokes about 4 cigarettes a day. States she occasionally smokes marijuana and she lives with her friend Meseret. Denies any heroin or cocaine use. Denies any alcohol use. Past Drug Use History: Marijuana - Past Family History Father Family Medical History: Unable to Obtain Additional Family Medical History / Comment(s): unknown Mother Family Medical History: Pulmonary Embolus Additional Family Medical History / Comment(s): Mental Illness, she had Bipolar Depression. Medications and Allergies Home Medications Medication Instructions Recorded Confirmed Type Benkelman Carbonate [Benkelman 600 mg PO BID 10/23/21 06/02/22 History Carbonate ER] Allergies Allergy/AdvReac Type Severity Reaction Status Date / Time amoxicillin Allergy Rash/Hives Verified 05/31/22 00:36 carbamazepine [From Tegretol] Allergy Unknown Verified 05/31/22 00:36 fluphenazine enanthate Allergy Unknown Verified 05/31/22 00:36 [From Prolixin] fluphenazine HCl Allergy Unknown Verified 05/31/22 00:36 [From Prolixin] olanzapine [From Zyprexa] Allergy Unknown Verified 05/31/22 00:36 Physical Exam Vitals: Vital Signs Temp Pulse Pulse Pulse Pulse Resp BP 06/08/22 15:45 98 20 119/79 06/08/22 15:30 100 11 L 100/66 06/08/22 15:20 06/08/22 15:15 100 23 104/68 06/08/22 15:00 98 33 H 113/66 06/08/22 14:50 06/08/22 14:48 06/08/22 14:45 121 H 30 H 129/81 06/08/22 14:30 102 H 35 H 125/71 06/08/22 14:15 98 33 H 133/71 06/08/22 14:00 102 H 37 H 127/75 03/16/23 13:45 100 33 H 135/82 06/08/22 13:40 103 H 39 H 135/82 06/08/22 13:20 100.3 F H 108 H 42 H 142/91 06/08/22 11:50 99.5 F 102 H 38 H 06/08/22 10:50 101.1 F H 06/08/22 08:24 102.2 F H 06/08/22 08:19 40 H 06/08/22 08:02 06/08/22 08:00 102 H 100 91 38 H 06/08/22 07:30 102.1 F H 70 40 H 06/08/22 04:00 100.5 F H 105 H 27 H 06/08/22 00:00 100.8 F H 106 H 27 H 06/07/22 19:55 100.2 F H 102 H 18 06/07/22 16:51 06/07/22 16:10 97.2 F L 102 H 20 BP BP Pulse Ox FiO2 06/08/22 15:45 98 50 06/08/22 15:30 98 06/08/22 15:20 50 06/08/22 15:15 99 06/08/22 15:00 99 100 06/08/22 14:50 100 06/08/22 14:48 100 06/08/22 14:45 99 100 06/08/22 14:30 94 L 06/08/22 14:15 96 06/08/22 14:00 96 06/08/22 13:45 95 06/08/22 13:40 96 06/08/22 13:20 90 L 06/08/22 11:50 129/79 97 06/08/22 10:50 06/08/22 08:24 06/08/22 08:19 06/08/22 08:02 94 L 21 06/08/22 08:00 06/08/22 07:30 128/76 96 06/08/22 04:00 133/82 98 06/08/22 00:00 146/75 96 06/07/22 19:55 131/87 95 06/07/22 16:51 96 06/07/22 16:10 142/87 95 Intake and Output 06/08/22 06/08/22 06/08/22 06:59 14:59 22:59 Output Total 100 Balance -100 Output: Urine 100 Other: Voiding Method External Catheter Weight 67.5 kg 67.5 kg ABP, PAP, CO, CI - Last 8 Hours Arterial Blood Pressure 100/48 Arterial Blood Pressure 140/77 Arterial Blood Pressure 113/62 Physical Exam: Revealed a 52-year-old female unresponsive to any stimuli and unable to protect her airways, she has no gag reflex. Noted to be slightly stridorous, laying in bed, Head: Atraumatic, normocephalic. HEENT:[Neck is supple.] [No neck masses.] [No thyromegaly.] [No JVD.] Chest: [Clear throughout, no crackles, no rhonchi, no wheezes.] Cardiac Exam: Tachycardic. [Normal S1 and S2, no S3 gallop, no murmur.] Abdomen: [Soft, nontender, no megaly, no rebound, no guarding, normal bowel sounds.] Extremities: [No clubbing, no edema, no cyanosis.] Neurological Exam: Patient is comatose. Primary gaze is in midline. Pupils are sluggishly reactive to light, positive corneal reflex bilaterally. Patient is gagging on deep suctioning of the endotracheal tube reflexes 2+ throughout. Psychiatric: Could not assess. Skin: No rashes Results - Laboratory Findings CBC and BMP: 06/08/22 04:43 06/08/22 04:43 Abnormal lab findings: Abnormal Labs 06/03/22 06/03/22 06/04/22 05:22 05:22 06:18 WBC RBC 3.89 L Hgb 11.4 L Hct 34.9 L MCHC Neutrophils # Lymphocytes # Chloride Anion Gap 9.90 L BUN/Creatinine Ratio Glucose 112 H POC Glucose (mg/dL) Creatine Kinase 251 H 06/06/22 06/07/22 06/08/22 04:33 05:42 04:43 WBC 11.77 H RBC 3.97 L Hgb 11.5 L Hct 36.0 L MCHC 31.9 L Neutrophils # 10.35 H Lymphocytes # 0.56 L Chloride 109 H Anion Gap BUN/Creatinine Ratio 29.00 H Glucose POC Glucose (mg/dL) Creatine Kinase 06/08/22 06/08/22 04:43 13:22 WBC RBC Hgb Hct MCHC Neutrophils # Lymphocytes # Chloride Anion Gap BUN/Creatinine Ratio 20.07 H Glucose 156 H POC Glucose (mg/dL) 124 H Creatine Kinase - Diagnostic Findings Chest x-ray: image reviewed (No evidence of active disease, central line endotracheal tube and nasogastric tube are in proper positions.) Assessment and Plan Assessment: Impression: Altered mental status Possible catatonia and not responding to Ativan. History of bipolar disorder Acute respiratory failure secondary to inability to protect airways requiring intubation and mechanical ventilation. Acute dehydration up on her initial presentation secondary to poor oral intake. 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 Recommendation: Continue ventilatory support Continue IV fluids Valencia catheter and monitor strict I's and O's on this patient Enteral feeding via nasogastric tube. Continue propofol Psychiatry to continue to follow Neurology consulted and the patient will be having a CT of the brain today. Empiric antibiotics until sputum cultures and blood cultures are available Blood urine and sputum cultures ordered Will continue to follow Critical care time is over 35 minutes not including the time on procedures Time with Patient: Greater than 30
--- NOTE | 2022-06-08 16:50 | CT ---
EXAMINATION TYPE: CT brain wo con CT DLP: 1202.4 mGycm, Automated exposure control for dose reduction was used. DATE OF EXAM: 06/08/2022 4:44 PM COMPARISON: MRI 10/22/2012. CLINICAL INDICATION:Female, 52 years old with history of decreased LOC, catatonia, Altered mental sta tus. TECHNIQUE: Brain: Axial CT images of the brain were obtained with coronal and sagittal reformats created and rev iewed. Contrast used: None. Oral contrast used: None. FINDINGS: Brain: Extra-axial spaces: No abnormal extra-axial fluid collections. Ventricular system: Within normal limits Cerebral parenchyma: No acute intraparenchymal hemorrhage or mass effect. The corrales-white junction is well differentiated. Cerebellum: Unremarkable. Mass effect: No evidence of midline shift. Intracranial vasculature: unremarkable Soft tissues: Normal. Calvarium/osseous structures: No depressed skull fracture. Paranasal sinuses and mastoid air cells: Mild scattered paranasal sinus disease. Visualized orbits: Orbital contents are intact. Other: Nasogastric tube is partially visualized. IMPRESSION: No acute intracranial process.
--- NOTE | 2022-06-08 17:15 | OP ---
OPERATIVE REPORT DATE OF SERVICE : PROCEDURE PERFORMED: Placement of a right radial arterial line. PREOPERATIVE DIAGNOSIS: Acute respiratory failure. POSTOPERATIVE DIAGNOSIS: Acute respiratory failure. ANESTHESIA USED: None deployed. DESCRIPTION OF PROCEDURE: The right wrist was prepared in a sterile fashion, and drapes were applied. The right radial artery was palpated, cannulated, and a guidewire was placed. A Cook catheter was inserted over the guidewire, and the guidewire was removed. Good blood flow. Good waveform. No complications. Line was secured using 3-0 silk sutures. MMODL / IJN: [id number] /
--- NOTE | 2022-06-08 17:21 | OP ---
OPERATIVE REPORT DATE OF SERVICE : PROCEDURE PERFORMED: Placement of a right internal jugular triple-lumen catheter. PREOPERATIVE DIAGNOSES: Acute respiratory failure, could not protect airways. The patient has acute catatonic state. The line was placed in emergency situation. POSTOPERATIVE DIAGNOSES: Acute respiratory failure, could not protect airways. The patient has acute catatonic state. The line was placed in emergency situation. ANESTHESIA USED: 2 mL of 1% lidocaine. DESCRIPTION OF PROCEDURE: The patient was placed in a Trendelenburg position. The area of the right cervical region was prepared in a sterile fashion, and drapes were applied. The area was locally anesthetized behind the posterior belly of the sternocleidomastoid muscle. Then, using the posterior approach, the right IJ vein was easily cannulated, and a guidewire was placed. The area around the guidewire was dilated, and a triple-lumen catheter was inserted over the guidewire, and the guidewire was removed. Good blood flow noted in the 3 different ports of the triple-lumen catheter. Line was secured using 3-0 silk sutures. No complications. Chest x-ray showed adequate placement of the triple-lumen catheter, and again, no complications. MMODL / IJN: [id number] /
[2022-06-08 17:22] LABS: Amorphous Sediment,Urine Rare /hpf; Appearance,Urine Cloudy (Clear); Bacteria,Urine Occasional /hpf; Bilirubin,Urine Negative (Negative); Blood,Urine Small (Negative); Color,Urine Yellow; Glucose,Urine (UA) 2+ (Negative); Hyaline Casts,Urine 1 /lpf (0-2); Ketones,Urine Negative (Negative); Leukocyte Esterase,Urine Moderate (Negative); Mucus,Urine Many /hpf; Nitrite,Urine Negative (Negative); Protein,Urine 1+ (Negative); RBC,Urine 33 /hpf (0-5); Specific Gravity,Urine 1.025 (1.001-1.035); WBC,Urine 63 /hpf (0-5)
--- NOTE | 2022-06-08 17:27 | OP ---
OPERATIVE REPORT DATE OF SERVICE : PROCEDURES PERFORMED: Intubation and mechanical ventilation. PREOPERATIVE DIAGNOSES: Unable to protect airways, acute catatonia. POSTOPERATIVE DIAGNOSES: Unable to protect airways, acute catatonia. ANESTHESIA USED: The patient received 15 mg of propofol, 5 mg of morphine sulfate, and 75 mg of succinylcholine. DESCRIPTION OF PROCEDURE: The patient was placed in a supine position. The patient was unresponsive, and she had no gag reflux. Then, the patient received propofol, morphine sulfate, and succinylcholine as noted above. Using a GlideScope, a size 4 blade was used. The tongue was depressed, and I was able to visualize the area around the vocal cords. It was mostly covered with thick purulent secretions, which I had to suction thoroughly. Then, I was able to visualize the vocal cords, and a size 7.5 endotracheal tube was inserted through the vocal cords and advanced into the area of the trachea. Cuff was inflated. There was a color change with Ambu bagging the patient, and the patient was connected to mechanical ventilation. Chest x-ray showed adequate placement of the endotracheal tube, and no complications. The patient was connected to mechanical ventilation. MMODL / IJN: [id number] /
[2022-06-08] MEDS ORDERED: SODIUM CHLORIDE 0.9% 1,000 ML IV ONE (18:03)
[2022-06-08] MEDS: PANTOPRAZOLE 40 MG/10 ML VIAL IVP SCH (18:53)
[2022-06-08] MEDS: CEFEPIME 2 GM in SODIUM CHLORIDE 0.9% 100 ML IVPB SCH (18:53)
[2022-06-08] MEDS ORDERED: HYDROCORTISONE SUCCINATE 100 MG/2 ML VIAL IV STA (19:55)
[2022-06-08] MEDS: SODIUM CHLORIDE 0.9% 1,000 ML IV ONE ×2 (20:12→21:31)
[2022-06-08] MEDS: VALPROATE SODIUM 500 MG in SODIUM CHLORIDE 0.9% 100 ML IVPB SCH (20:29)
[2022-06-08] MEDS ORDERED: NOREPINEPHRINE 8 MG in SODIUM CHLORIDE 0.9% 250 ML IV SCH (20:30)
[2022-06-08] MEDS: CHLORHEXIDINE GLUCONATE 15 ML CUP MUCOUS MEM SCH (21:29)
[2022-06-08] MEDS: ZOLPIDEM 5 MG TAB PO SCH (21:37)
[2022-06-08 23:03] LABS: Glucose,Whole Blood 126 mg/dL (70-110)
[2022-06-09] MEDS: CEFEPIME 2 GM in SODIUM CHLORIDE 0.9% 100 ML IVPB SCH ×3 (01:42→16:16)
[2022-06-09] MEDS: DEXTROSE 5%-0.45% NACL 1,000 ML IV SCH ×2 (05:34→13:09)
[2022-06-09 06:17] LABS: ALT 17 U/L (4-34); AST 14 U/L (14-36); African American GFR (CKD) >90 (>60 ml/min/1.73 sqM); Albumin 2.5 g/dL (3.5-5.0); Alkaline Phosphatase 48 U/L (38-126); Anion Gap 6 mmol/L; Blood Urea Nitrogen 8 mg/dL (7-17); Carbon Dioxide 22 mmol/L (22-30); Chloride 114 mmol/L (98-107); Glucose 125 mg/dL (74-99); Magnesium 2.3 mg/dL (1.6-2.3); Non-African American GFR(CKD) >90 (>60 ml/min/1.73 sqM); Potassium 3.2 mmol/L (3.5-5.1); Sodium 142 mmol/L (137-145); Total Bilirubin 0.2 mg/dL (0.2-1.3); Total Protein 4.9 g/dL (6.3-8.2)
[2022-06-09 06:18] LABS: Basophils % (A) 0 %; Eosinophils # (A) 0.2 k/uL (0-0.7); Eosinophils % (A) 3 %; HCT 28.6 % (34.0-46.0); Lymphocytes # (A) 0.9 k/uL (1.0-4.8); Lymphocytes % (A) 11 %; MCHC 32.5 g/dL (31.0-37.0); MCV 89.3 fL (80.0-100.0); Monocytes # (A) 0.4 k/uL (0-1.0); Monocytes % (A) 5 %; Neutrophils # (A) 6.9 k/uL (1.3-7.7); Neutrophils % (A) 80 %; Platelet Count 175 k/uL (150-450); RBC 3.21 m/uL (3.80-5.40); WBC 8.6 k/uL (3.8-10.6)
[2022-06-09 06:25] LABS: HGB 9.3 gm/dL (11.4-16.0)
[2022-06-09 06:47] LABS: ABG Base Excess -0.9 mmol/L; ABG HCO3 23 mmol/L (21-25); ABG PCO2 34 mmHg (35-45); ABG PH 7.44 (7.35-7.45); ABG PO2 146 mmHg (83-108); ABG TCO2 24 mmol/L (19-24); Allen Test Performed? Yes
[2022-06-09 06:48] LABS: ABG Oxygen Saturation 99.5 % (94-97)
--- NOTE | 2022-06-09 07:08 | XR ---
EXAMINATION TYPE: XR chest 1V portable DATE OF EXAM: 06/09/2022 5:39 AM COMPARISON: Chest radiographs from 06/08/2022 TECHNIQUE: XR chest 1V portable Portable AP radiograph of the chest. CLINICAL INDICATION:Female, 52 years old with history of Tube placement; FINDINGS: Lungs/Pleura: There is no evidence of pleural effusion, focal consolidation, or pneumothorax. Pulmonary vascularity: Unremarkable. Heart/mediastinum: Cardiomediastinal silhouette is unremarkable. Musculoskeletal: No acute osseous pathology. Lines/Tubes: Endotracheal tube with distal tip 2.7 cm above the jannette Nasogastric tube with its distal tip and side-port projecting under the diaphragm. Right IJ central venous catheter with tip in the right atrium. IMPRESSION: 1. Appropriate positions of endotracheal and NG tubes. 2. Right IJ central venous catheter with in the right atrium.
[2022-06-09] MEDS ORDERED: Potassium Replacement Protocol 1 EACH MISC MISCELLANE PRN (07:25)
[2022-06-09] MEDS: ENOXAPARIN 40 MG/0.4 ML SYRINGE SQ SCH (08:25)
[2022-06-09] MEDS: CHLORHEXIDINE GLUCONATE 15 ML CUP MUCOUS MEM SCH (08:25)
[2022-06-09] MEDS: POTASSIUM CHLORIDE 20 MEQ in WATER FOR INJECTION 1 100ML.BAG IVPB SCH ×2 (08:25→11:02)
[2022-06-09] MEDS: PANTOPRAZOLE 40 MG/10 ML VIAL IVP SCH (08:25)
[2022-06-09] MEDS ORDERED: SENNOSIDES 8.6 MG TAB PO SCH (09:00)
--- NOTE | 2022-06-09 10:27 | P.PN ---
Subjective Progress Note Date: 06/09/22 Hospital Course: 52-year-old woman with a medical history of bipolar disorder presented as a tr ansfer from [facility] under petition certification for worsening psychiatric symptoms. Medicine was consulted for medical clearance of this patient. However, medicine was later contacted given patient's dehydration status, poor by mouth intake, severe catatonia. They requested transfer to the medical floor for IV fluids as well as IV Ativan to break catatonia. Upon evaluation, patient was afebrile, 117/72, heart rate 105, 95% on room air. reviewed from this morning shows leukocytosis to 14.4, chemistries show 134 sodium, CO2 of 21, BUN 21, creatinine of 0.88. Calcium is 10.4. Liver function tests show total bilirubin of 1.5. CK is 604. Vitamin B-12 was 454, folate was 30.8. UA shows cloudy appearance with trace protein, large blood, 8 red blood cells, 6 white blood cells, rare bacteria. Waucoma level was 1.3 this morning. Treponema antibody was nonreactive. EKG shows sinus tachycardia with left axis deviation, good R-wave progression, no signs of ischemia. Patient needs to remain in a catatonic, plan for transfer to [facility]. Patient having significant autonomic dysfunction, has been getting or tachypneic and with periods of apnea. ICU was consulted, patient transferred to medical ICU currently intubated. Neurology also consulted by ornamental metal worker apprentice. Pending EEG. Subjective: Patient seen and examined at bedside. Patient remains intubated and on propofol. She was briefly hypotensive on propofol requiring vasopressors. Remains unresponsive and catatonic Vitals Signs Reviewed. Gen: No acute distress, intubated and sedated Eyes: PERRL, no scleral injection or icterus HENT: normocephalic, atraumatic, dry mucous membranes Neck: no tracheal deviation, full range of motion Resp: clear to auscultation bilaterally, intubated CVS: good distal perfusion x 4, no pitting edema, tachycardic, regular, no murmurs GI: soft, NTTP, ND, no hepatosplenomegaly, normal bowel sounds : no suprapubic tenderness, no CVAT MSK: no clubbing, no cyanosis, no noted contractures of extremities Skin: no noted rashes, petechiae Neuro: Does not open eyes spontaneously or moves her extremities, sedated Psych: Unable to assess Data reviewed today: WBC 8.6, hemoglobin 9.3, sodium 132, potassium 3.2, chloride 114, creatinine 0.46, pH 7.44, pCO2 [address] report reviewed: No acute process Chest x-ray personally interpreted no opacities, ET and NG tube in place, right IJ central line in place Assessment and Plan: Patient is critically ill, currently sedated and intubated in the medical ICU. Active: Catatonia Ventilator-dependent respiratory failure Autonomic dysfunction Febrile Tachypnea Tachycardia Bipolar disorder Dehydration Acute Urinary retention Hypokalemia -Personally discussed management with ornamental metal worker apprentice: Plan to wean propofol, and do a spontaneous breathing trial, empiric treatment with IV cefepime 2 g every 8 hours -Psychiatry following, continue valproic acid -Has significant autonomic dysfunction from catatonic state -Neurology was consulted, pending EEG, may consider MRI when patient is extubated -Continue D5 half-normal at 100 mL an hour -Tylenol 650 mg every 6 hours as needed for fever -Had Valencia catheter placed today for urinary retention -Repleted with 40 mEq of IV potassium DVT ppx: Lovenox Code status: Full code Anticipated discharge place: [facility] Anticipated discharge time: When bed available Objective - Vital Signs Vital signs: Vital Signs Temp 98.9 F 06/09/22 08:00 Pulse 76 06/09/22 10:00 Resp 24 06/09/22 10:00 BP 111/70 06/09/22 09:00 Pulse Ox 98 06/09/22 10:00 FiO2 35 06/09/22 08:54 Intake & Output 06/08/22 06/09/22 06/09/22 18:59 06:59 18:59 Intake Total 1335.803 651.937 Output Total 175 1150 365 Balance -175 185.803 286.937 Weight 67.5 kg Intake: IV 500 Cefepime 2 gm In Sodium 100 Chloride 0.9% 100 ml @ 25 mls/hr IVPB Q8HR JULIANN Rx# :[id number] Dextrose 5%-0.45% NaCl 1, 300 000 ml @ 100 mls/hr IV . Q10H JULIANN Rx#:[id number] Potassium Chloride 20 meq 100 In Water For Injection 1 100ml.bag @ 50 mls/hr IVPB Q2H JULIANN Rx#: [id number] Intake, IV Titration 1335.803 151.937 Amount Dextrose 5%-0.45% NaCl 1, 1200 000 ml @ 100 mls/hr IV . Q10H JULIANN Rx#:[id number] Norepinephrine 8 mg In 1.175 58.955 Sodium Chloride 0.9% 250 ml @ 0.03 MCG/KG/MIN 3. 918 mls/hr IV .Q24H JULIANN Rx#:[id number] propofoL 1,000 mg In 134.628 92.982 Empty Bag 1 bag @ 15 MCG/ KG/MIN 6.075 mls/hr IV . [id number] JULIANN Rx#:[id number] Output: Urine 175 1150 365 Other: Voiding Method Indwelling Catheter Indwelling Catheter Indwelling Catheter ABP, PAP, CO, CI - Last Documented Arterial Blood Pressure 109/53 - Labs CBC & Chem 7: 06/09/22 05:45 06/09/22 05:45 Labs: Abnormal Lab Results - Last 24 Hours (Table) 06/08/22 06/08/22 06/08/22 Range/Units 13:22 15:58 16:14 RBC (3.80-5.40) m/uL Hgb (11.4-16.0) gm/dL Hct (34.0-46.0) % Lymphocytes # (1.0-4.8) k/uL ABG pH 7.47 H (7.35-7.45) ABG pCO2 34 L (35-45) mmHg ABG pO2 147 H (83-108) mmHg ABG Total CO2 25 H (19-24) mmol/L ABG O2 Saturation (94-97) % Potassium (3.5-5.1) mmol/L Chloride (98-107) mmol/L Creatinine (0.52-1.04) mg/dL Glucose (74-99) mg/dL POC Glucose (mg/dL) 124 H (70-110) mg/dL Calcium (8.4-10.2) mg/dL Ammonia 30 H (<30) umol/L Total Protein (6.3-8.2) g/dL Albumin (3.5-5.0) g/dL Urine Appearance (Clear) Urine Protein (Negative) Urine Glucose (UA) (Negative) Urine Blood (Negative) Ur Leukocyte Esterase (Negative) Urine RBC (0-5) /hpf Urine WBC (0-5) /hpf Amorphous Sediment (None) /hpf Urine Bacteria (None) /hpf Urine Mucus (None) /hpf 06/08/22 06/08/22 06/09/22 Range/Units 17:00 23:00 05:45 RBC 3.21 L (3.80-5.40) m/uL Hgb 9.3 L D (11.4-16.0) gm/dL Hct 28.6 L (34.0-46.0) % Lymphocytes # 0.9 L (1.0-4.8) k/uL ABG pH (7.35-7.45) ABG pCO2 (35-45) mmHg ABG pO2 (83-108) mmHg ABG Total CO2 (19-24) mmol/L ABG O2 Saturation (94-97) % Potassium (3.5-5.1) mmol/L Chloride (98-107) mmol/L Creatinine (0.52-1.04) mg/dL Glucose (74-99) mg/dL POC Glucose (mg/dL) 126 H (70-110) mg/dL Calcium (8.4-10.2) mg/dL Ammonia (<30) umol/L Total Protein (6.3-8.2) g/dL Albumin (3.5-5.0) g/dL Urine Appearance Cloudy H (Clear) Urine Protein 1+ H (Negative) Urine Glucose (UA) 2+ H (Negative) Urine Blood Small H (Negative) Ur Leukocyte Esterase Moderate H (Negative) Urine RBC 33 H (0-5) /hpf Urine WBC 63 H (0-5) /hpf Amorphous Sediment Rare H (None) /hpf Urine Bacteria Occasional H (None) /hpf Urine Mucus Many H (None) /hpf 06/09/22 06/09/22 Range/Units 05:45 06:41 RBC (3.80-5.40) m/uL Hgb (11.4-16.0) gm/dL Hct (34.0-46.0) % Lymphocytes # (1.0-4.8) k/uL ABG pH (7.35-7.45) ABG pCO2 34 L (35-45) mmHg ABG pO2 146 H (83-108) mmHg ABG Total CO2 (19-24) mmol/L ABG O2 Saturation 99.5 H (94-97) % Potassium 3.2 L (3.5-5.1) mmol/L Chloride 114 H (98-107) mmol/L Creatinine 0.46 L (0.52-1.04) mg/dL Glucose 125 H (74-99) mg/dL POC Glucose (mg/dL) (70-110) mg/dL Calcium 8.0 L (8.4-10.2) mg/dL Ammonia (<30) umol/L Total Protein 4.9 L (6.3-8.2) g/dL Albumin 2.5 L (3.5-5.0) g/dL Urine Appearance (Clear) Urine Protein (Negative) Urine Glucose (UA) (Negative) Urine Blood (Negative) Ur Leukocyte Esterase (Negative) Urine RBC (0-5) /hpf Urine WBC (0-5) /hpf Amorphous Sediment (None) /hpf Urine Bacteria (None) /hpf Urine Mucus (None) /hpf Microbiology - Last 24 Hours (Table) 06/08/22 15:33 Gram Stain - Preliminary Sputum Sputum Culture - Preliminary 06/08/22 17:00 Urine Culture - Preliminary Urine,Voided
[2022-06-09 12:29] LABS: Glucose,Whole Blood 115 mg/dL (70-110)
--- NOTE | 2022-06-09 12:39 | P.PN ---
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 Apparently the patient was initially admitted with acute manic episode, and she went on to develop a catatonic picture. When the patient arrived to [facility], she was seen by psychiatry, and felt that the patient could not be admitted to the psychiatric [facility] mostly because of her dehydration status and she needed IV fluid she also needed IV Ativan for her catatonic state. Patient was being managed by internal medicine and by psychiatry since 06/02/2022, and she was receiving Ativan without any improvement. Patient was evaluated today by psychiatry and felt that the patient should be transferred to the [facility] for ECT. Over the last 2 days, patient has been noted to have fevers as high as 102.2, she was also noted to be tachypneic and tachycardic, I was notified about this patient by the internal medicine physician and she was developing more and more unresponsive this and to the point that she could not protect her airways and she had no gag reflex. I accepted the patient to trans shanel to the ICU, and as I went to see the patient she seemed to be in moderate respiratory distress, almost sounded stridorous, and she did not have any gag reflex. Patient had no response to any stimuli whatsoever. Hence I recommended intubation and mechanical ventilation. Upon visualization of her vocal cords, there was significant purulent secretions thick and tenacious required suctioning to visualize the vocal cords. Patient was intubated with a 7.5 endotracheal tube, and I consulted neurology on this patient for further evaluation of her neurological status. In the meantime patient was placed on propofol. Patient had very poor urine output overnight she was tachycardic and tachypneic overnight, however her blood pressure was stable. ABG post intubation showed a pO2 of 147 pCO2 34 pH of 7.47 and this was on 50% FiO2, assist control rate of 16 and tidal volume of 400. COVID-19 PCR was negative. Reevaluated today on 06/09/2022, patient remains in the ICU, intubated and mechan ically ventilated. I saw this patient yesterday for the first time, and apparently she had what seems to be catatonic schizophrenia. Patient was unable to protect her airways, she was intubated and mechanically ventilated. Required mostly IV fluids, norepinephrine briefly last night for low blood pressure she was also agitated one point required higher dose of propofol. Patient remains intubated and mechanically, she is on assist control rate of 14 tidal volume 400 FiO2 40% and PEEP of 5. ABG showed a pO2 of 146 pCO2 34 pH of 7.44 hence I recommended FiO2 down to 35%. She is on IV fluid in the form of D5 4 5 at 100 mL per hour. Patient is receiving cefepime, this is empirically cultures including urine cultures and blood cultures are pending and they seem to be negative so far. Patient was seen by neurology, CT of the brain yesterday was unremarkable. I discussed his condition with the urologist today, and he feels this is mostly a catatonic state. Patient is not showing any signs of improvement in spite of being on propofol since yesterday, and she has been tried on Ativan for the last few days before she was transferred to the ICU. Patient is supposed to transfer eventually to the [facility], may eventually require ECT treatment. Labs today are basically unremarkable including normal CBC, normal basic metabolic profile, she had possibly infected urine, cultures are pending and the patient is presently on cefepime Objective - Vital Signs Vital signs: Vital Signs Temp 98.9 F 06/09/22 08:00 Pulse 77 06/09/22 11:00 Resp 20 06/09/22 11:00 BP 95/59 06/09/22 11:00 Pulse Ox 99 06/09/22 11:00 FiO2 35 06/09/22 11:48 Intake & Output 06/08/22 06/09/22 06/09/22 18:59 06:59 18:59 Intake Total 1335.803 858.011 Output Total 175 1150 445 Balance -175 185.803 413.011 Weight 67.5 kg 67.5 kg Intake: IV 700 Cefepime 2 gm In Sodium 100 Chloride 0.9% 100 ml @ 25 mls/hr IVPB Q8HR JULIANN Rx# :[id number] Dextrose 5%-0.45% NaCl 1, 400 000 ml @ 100 mls/hr IV . Q10H JULIANN Rx#:[id number] Potassium Chloride 20 meq 200 In Water For Injection 1 100ml.bag @ 50 mls/hr IVPB Q2H JULIANN Rx#: [id number] Intake, IV Titration 1335.803 158.011 Amount Dextrose 5%-0.45% NaCl 1, 1200 000 ml @ 100 mls/hr IV . Q10H JULIANN Rx#:[id number] Norepinephrine 8 mg In 1.175 58.955 Sodium Chloride 0.9% 250 ml @ 0.03 MCG/KG/MIN 3. 918 mls/hr IV .Q24H JULIANN Rx#:[id number] propofoL 1,000 mg In 134.628 99.056 Empty Bag 1 bag @ 15 MCG/ KG/MIN 6.075 mls/hr IV . [id number] JULIANN Rx#:[id number] Output: Urine 175 1150 445 Other: Voiding Method Indwelling Catheter Indwelling Catheter Indwelling Catheter ABP, PAP, CO, CI - Last Documented Arterial Blood Pressure 133/59 - Exam Physical Exam: Revealed a 52-year-old female, intubated, mechanically ventila pepe, on propofol, in no distress. Head: Atraumatic, normocephalic. Endotracheal tube and nasogastric tube are intact. HEENT:[Neck is supple.] [No neck masses.] [No thyromegaly.] [No JVD.] Chest: [Clear throughout, no crackles, no rhonchi, no wheezes.] Cardiac Exam [Normal S1 and S2, no S3 gallop, no murmur.] Abdomen: [Soft, nontender, no megaly, no rebound, no guarding, normal bowel sounds.] Extremities: [No clubbing, no edema, no cyanosis.] Neurological Exam: Could not assess, patient is on propofol, however remains comatose. Primary gaze is in midline. Pupils are reactive to light, Psychiatric: Could not assess. On propofol. Skin: No rashes - Labs CBC & Chem 7: 06/09/22 05:45 06/09/22 05:45 Labs: Abnormal Lab Results - Last 24 Hours (Table) 06/08/22 06/08/22 06/08/22 Range/Units 13:22 15:58 16:14 RBC (3.80-5.40) m/uL Hgb (11.4-16.0) gm/dL Hct (34.0-46.0) % Lymphocytes # (1.0-4.8) k/uL ABG pH 7.47 H (7.35-7.45) ABG pCO2 34 L (35-45) mmHg ABG pO2 147 H (83-108) mmHg ABG Total CO2 25 H (19-24) mmol/L ABG O2 Saturation (94-97) % Potassium (3.5-5.1) mmol/L Chloride (98-107) mmol/L Creatinine (0.52-1.04) mg/dL Glucose (74-99) mg/dL POC Glucose (mg/dL) 124 H (70-110) mg/dL Calcium (8.4-10.2) mg/dL Ammonia 30 H (<30) umol/L Total Protein (6.3-8.2) g/dL Albumin (3.5-5.0) g/dL Urine Appearance (Clear) Urine Protein (Negative) Urine Glucose (UA) (Negative) Urine Blood (Negative) Ur Leukocyte Esterase (Negative) Urine RBC (0-5) /hpf Urine WBC (0-5) /hpf Amorphous Sediment (None) /hpf Urine Bacteria (None) /hpf Urine Mucus (None) /hpf 06/08/22 06/08/22 06/09/22 Range/Units 17:00 23:00 05:45 RBC 3.21 L (3.80-5.40) m/uL Hgb 9.3 L D (11.4-16.0) gm/dL Hct 28.6 L (34.0-46.0) % Lymphocytes # 0.9 L (1.0-4.8) k/uL ABG pH (7.35-7.45) ABG pCO2 (35-45) mmHg ABG pO2 (83-108) mmHg ABG Total CO2 (19-24) mmol/L ABG O2 Saturation (94-97) % Potassium (3.5-5.1) mmol/L Chloride (98-107) mmol/L Creatinine (0.52-1.04) mg/dL Glucose (74-99) mg/dL POC Glucose (mg/dL) 126 H (70-110) mg/dL Calcium (8.4-10.2) mg/dL Ammonia (<30) umol/L Total Protein (6.3-8.2) g/dL Albumin (3.5-5.0) g/dL Urine Appearance Cloudy H (Clear) Urine Protein 1+ H (Negative) Urine Glucose (UA) 2+ H (Negative) Urine Blood Small H (Negative) Ur Leukocyte Esterase Moderate H (Negative) Urine RBC 33 H (0-5) /hpf Urine WBC 63 H (0-5) /hpf Amorphous Sediment Rare H (None) /hpf Urine Bacteria Occasional H (None) /hpf Urine Mucus Many H (None) /hpf 06/09/22 06/09/22 06/09/22 Range/Units 05:45 06:41 12:27 RBC (3.80-5.40) m/uL Hgb (11.4-16.0) gm/dL Hct (34.0-46.0) % Lymphocytes # (1.0-4.8) k/uL ABG pH (7.35-7.45) ABG pCO2 34 L (35-45) mmHg ABG pO2 146 H (83-108) mmHg ABG Total CO2 (19-24) mmol/L ABG O2 Saturation 99.5 H (94-97) % Potassium 3.2 L (3.5-5.1) mmol/L Chloride 114 H (98-107) mmol/L Creatinine 0.46 L (0.52-1.04) mg/dL Glucose 125 H (74-99) mg/dL POC Glucose (mg/dL) 115 H (70-110) mg/dL Calcium 8.0 L (8.4-10.2) mg/dL Ammonia (<30) umol/L Total Protein 4.9 L (6.3-8.2) g/dL Albumin 2.5 L (3.5-5.0) g/dL Urine Appearance (Clear) Urine Protein (Negative) Urine Glucose (UA) (Negative) Urine Blood (Negative) Ur Leukocyte Esterase (Negative) Urine RBC (0-5) /hpf Urine WBC (0-5) /hpf Amorphous Sediment (None) /hpf Urine Bacteria (None) /hpf Urine Mucus (None) /hpf Microbiology - Last 24 Hours (Table) 06/08/22 15:33 Gram Stain - Preliminary Sputum Sputum Culture - Preliminary 06/08/22 17:00 Urine Culture - Preliminary Urine,Voided Assessment and Plan Assessment: Impression: Altered mental status, secondary to catatonic schizophrenia. History of bipolar disorder Acute respiratory failure secondary to inability to protect airways requiring intubation and mechanical ventilation. Acute dehydration up on her initial presentation secondary to poor oral intake. 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 Possible urinary tract infection, cultures are pending. Recommendation: Continue ventilatory support, continue propofol, Continue IV fluids Enteral feeding via nasogastric tube. CT brain was nondiagnostic, EEG is pending. Continue Empiric antibiotics/cefepime until sputum cultures and blood cultures are available Patient remains critically ill. Hopefully could eventually arrange for her to be transferred for ECT at the [facility] Will continue to follow Critical care time is over 35 minutes Time with Patient: Greater than 30
--- NOTE | 2022-06-09 12:48 | P.PN ---
Subjective Progress Note Date: 06/09/22 The patient seen at bedside and she continues to be intubated on a ventilator and is on IV Propofol 50mcg/kg/min. Objective - Vital Signs Vital signs: Vital Signs Temp 98.9 F 06/09/22 08:00 Pulse 77 06/09/22 11:00 Resp 20 06/09/22 11:00 BP 95/59 06/09/22 11:00 Pulse Ox 99 06/09/22 11:00 FiO2 35 06/09/22 11:48 Intake & Output 06/08/22 06/09/22 06/09/22 18:59 06:59 18:59 Intake Total 1335.803 858.011 Output Total 175 1150 445 Balance -175 185.803 413.011 Weight 67.5 kg 67.5 kg Intake: IV 700 Cefepime 2 gm In Sodium 100 Chloride 0.9% 100 ml @ 25 mls/hr IVPB Q8HR JULIANN Rx# :[id number] Dextrose 5%-0.45% NaCl 1, 400 000 ml @ 100 mls/hr IV . Q10H JULIANN Rx#:[id number] Potassium Chloride 20 meq 200 In Water For Injection 1 100ml.bag @ 50 mls/hr IVPB Q2H JULIANN Rx#: [id number] Intake, IV Titration 1335.803 158.011 Amount Dextrose 5%-0.45% NaCl 1, 1200 000 ml @ 100 mls/hr IV . Q10H JULIANN Rx#:[id number] Norepinephrine 8 mg In 1.175 58.955 Sodium Chloride 0.9% 250 ml @ 0.03 MCG/KG/MIN 3. 918 mls/hr IV .Q24H JULIANN Rx#:[id number] propofoL 1,000 mg In 134.628 99.056 Empty Bag 1 bag @ 15 MCG/ KG/MIN 6.075 mls/hr IV . [id number] JULIANN Rx#:[id number] Output: Urine 175 1150 445 Other: Voiding Method Indwelling Catheter Indwelling Catheter Indwelling Catheter ABP, PAP, CO, CI - Last Documented Arterial Blood Pressure 133/59 - Exam GENERAL: The patient is lying in bed and does not appear in acute distress. LUNG: Intubated on ventilator. NEUROLOGICAL: Limited because of her condition. Is on IV Propofol 50mcg/kg/min Higher mental function: The patient is comatose. GCS 3 (E1, VT1, M1). Cranial nerves: I manually opened her eyes and primary gaze is midline. The pupils are round, 2mm and sluggishly reactive to light. Has positive corneal re flex bilaterally. Is breathing over the vent. Has positive cough reflex. Motor: The strength is no movement noted to painful stimuli. No spontaneous movement. Decrease tone throughout. Has normal bulk. Cerebellum: Unable to assess.. Sensation: Unable to assess light touch. Reflexes (right/left): 2+ throughout except ankles are 1+ Plantars are mute bilaterally. Some other workup during his hospital visit consisted of: Since 06/02/2022 patient is been afebrile until 06/06/22 had low-grade fever but since yesterday fever got as high as 102.2 Fahrenheit to pulse ox went down to 90 L at room air. White blood cell on 06/03/2022 was 8.37 thousand but most recent one is 11.7 t housand Her CK level was 251 on 06/04/2022. It is slightly/mildly elevated normal is 26-186. Repeat CK is [address] of the head is reported as no acute intracranial process. - Labs CBC & Chem 7: 06/09/22 05:45 06/09/22 16:54 Labs: Abnormal Lab Results - Last 24 Hours (Table) 06/08/22 06/08/22 06/08/22 Range/Units 13:22 15:58 16:14 RBC (3.80-5.40) m/uL Hgb (11.4-16.0) gm/dL Hct (34.0-46.0) % Lymphocytes # (1.0-4.8) k/uL ABG pH 7.47 H (7.35-7.45) ABG pCO2 34 L (35-45) mmHg ABG pO2 147 H (83-108) mmHg ABG Total CO2 25 H (19-24) mmol/L ABG O2 Saturation (94-97) % Potassium (3.5-5.1) mmol/L Chloride (98-107) mmol/L Creatinine (0.52-1.04) mg/dL Glucose (74-99) mg/dL POC Glucose (mg/dL) 124 H (70-110) mg/dL Calcium (8.4-10.2) mg/dL Ammonia 30 H (<30) umol/L Total Protein (6.3-8.2) g/dL Albumin (3.5-5.0) g/dL Urine Appearance (Clear) Urine Protein (Negative) Urine Glucose (UA) (Negative) Urine Blood (Negative) Ur Leukocyte Esterase (Negative) Urine RBC (0-5) /hpf Urine WBC (0-5) /hpf Amorphous Sediment (None) /hpf Urine Bacteria (None) /hpf Urine Mucus (None) /hpf 06/08/22 06/08/22 06/09/22 Range/Units 17:00 23:00 05:45 RBC 3.21 L (3.80-5.40) m/uL Hgb 9.3 L D (11.4-16.0) gm/dL Hct 28.6 L (34.0-46.0) % Lymphocytes # 0.9 L (1.0-4.8) k/uL ABG pH (7.35-7.45) ABG pCO2 (35-45) mmHg ABG pO2 (83-108) mmHg ABG Total CO2 (19-24) mmol/L ABG O2 Saturation (94-97) % Potassium (3.5-5.1) mmol/L Chloride (98-107) mmol/L Creatinine (0.52-1.04) mg/dL Glucose (74-99) mg/dL POC Glucose (mg/dL) 126 H (70-110) mg/dL Calcium (8.4-10.2) mg/dL Ammonia (<30) umol/L Total Protein (6.3-8.2) g/dL Albumin (3.5-5.0) g/dL Urine Appearance Cloudy H (Clear) Urine Protein 1+ H (Negative) Urine Glucose (UA) 2+ H (Negative) Urine Blood Small H (Negative) Ur Leukocyte Esterase Moderate H (Negative) Urine RBC 33 H (0-5) /hpf Urine WBC 63 H (0-5) /hpf Amorphous Sediment Rare H (None) /hpf Urine Bacteria Occasional H (None) /hpf Urine Mucus Many H (None) /hpf 06/09/22 06/09/22 06/09/22 Range/Units 05:45 06:41 12:27 RBC (3.80-5.40) m/uL Hgb (11.4-16.0) gm/dL Hct (34.0-46.0) % Lymphocytes # (1.0-4.8) k/uL ABG pH (7.35-7.45) ABG pCO2 34 L (35-45) mmHg ABG pO2 146 H (83-108) mmHg ABG Total CO2 (19-24) mmol/L ABG O2 Saturation 99.5 H (94-97) % Potassium 3.2 L (3.5-5.1) mmol/L Chloride 114 H (98-107) mmol/L Creatinine 0.46 L (0.52-1.04) mg/dL Glucose 125 H (74-99) mg/dL POC Glucose (mg/dL) 115 H (70-110) mg/dL Calcium 8.0 L (8.4-10.2) mg/dL Ammonia (<30) umol/L Total Protein 4.9 L (6.3-8.2) g/dL Albumin 2.5 L (3.5-5.0) g/dL Urine Appearance (Clear) Urine Protein (Negative) Urine Glucose (UA) (Negative) Urine Blood (Negative) Ur Leukocyte Esterase (Negative) Urine RBC (0-5) /hpf Urine WBC (0-5) /hpf Amorphous Sediment (None) /hpf Urine Bacteria (None) /hpf Urine Mucus (None) /hpf Microbiology - Last 24 Hours (Table) 06/08/22 15:33 Gram Stain - Preliminary Sputum Sputum Culture - Preliminary 06/08/22 17:00 Urine Culture - Preliminary Urine,Voided Assessment and Plan Assessment: Altered mental status likely due to aspiration pneumonia. As well as a altered mentation because of medication use (Ativan, Propofol) and catatonia Catatonia and not responsive to Ativan Bipolar type I Plan: Once the patient is extubated recommend pursuing MRI of the brain with and without to rule out any intracranial process. Pending EEG to rule out any underlying seizure or discharges was seems unlikely. I spoke with psychiarity team and he stated will attempt to try her on Topamax 50mg bid for catatonia and will go up to 100mg bid if still ineffective. Currenlty on Valproate 500mg qhs for mood stablization/catatonia. Needs ECT for her catatonia. We'll defer the rest the medical management to the psychiatry team and primary team ordered Patient is pending transfer to [facility] for escalation of care for her Catatonia. Plan was discussed with the ICU attending, primary team and nurse. Time with Patient: Less than 30
--- NOTE | 2022-06-09 13:30 | P.PN ---
Progress Note - Text Progress Note Date: 06/09/22 Interval History: Patient was seen resting in bed and is currently ventilated and sedated. Patient is unresponsive to external stimuli. ICU is currently managing patient for autonomic instability and malignant catatonia. On IV Propofol 50 mcg/kg/min. Awaiting transfer to [facility] for higher level of care and ECT. Neurology following. Patient is also receiving empiric antibiotics for concern of aspiration pneumonia. Mental Status Exam: General Appearance: Ventilated and sedated. Behavior: Ventilated and sedated. Speech: Unable to speak due to ventilation Mood/Affect: Unarousable. Suicidality/Homicidality: Unable to assess due to patient status Perceptions: Unable to assess due to patient status Though content/process: Unable to assess due to patient status Memory and concentration: Unable to assess due to patient status Judgment and insight: Unable to assess due to patient status Laboratory Results WBC 8.6 k/uL (3.8-10.6) 06/09/22 05:45 RBC 3.21 m/uL (3.80-5.40) L 06/09/22 05:45 Hgb 9.3 gm/dL (11.4-16.0) L D 06/09/22 05:45 Hct 28.6 % (34.0-46.0) L 06/09/22 05:45 MCV 89.3 fL (80.0-100.0) 06/09/22 05:45 MCH 29.0 pg (25.0-35.0) 06/09/22 05:45 MCHC 32.5 g/dL (31.0-37.0) 06/09/22 05:45 RDW 14.0 % (11.5-15.5) 06/09/22 05:45 Plt Count 175 k/uL (150-450) 06/09/22 05:45 MPV 9.0 06/09/22 05:45 Immature Gran % (Auto) 0.3 % 06/08/22 04:43 Absolute Nucleated RBC 0 X 10*3/uL (0.00-0.00) 06/08/22 04:43 Neutrophils % 80 % 06/09/22 05:45 Lymphocytes % 11 % 06/09/22 05:45 Monocytes % 5 % 06/09/22 05:45 Eosinophils % 3 % 06/09/22 05:45 Basophils % 0 % 06/09/22 05:45 Immature Gran # 0.04 X 10*3/uL (0.00-0.04) 06/08/22 04:43 Neutrophils # 6.9 k/uL (1.3-7.7) 06/09/22 05:45 Lymphocytes # 0.9 k/uL (1.0-4.8) L 06/09/22 05:45 Monocytes # 0.4 k/uL (0-1.0) 06/09/22 05:45 Eosinophils # 0.2 k/uL (0-0.7) 06/09/22 05:45 Basophils # 0.0 k/uL (0-0.2) 06/09/22 05:45 NRBC/100 WBC Diff 0 /100 WBCS (0.0-0.0) 06/08/22 04:43 Sample Site a-line 06/09/22 06:41 ABG pH 7.44 (7.35-7.45) 06/09/22 06:41 ABG pCO2 34 mmHg (35-45) L 06/09/22 06:41 ABG pO2 146 mmHg (83-108) H 06/09/22 06:41 ABG HCO3 23 mmol/L (21-25) 06/09/22 06:41 ABG Total CO2 24 mmol/L (19-24) 06/09/22 06:41 ABG O2 Saturation 99.5 % (94-97) H 06/09/22 06:41 ABG Base Excess -0.9 mmol/L 06/09/22 06:41 Karlos Test Yes 06/09/22 06:41 FiO2 40 % 06/09/22 06:41 Sodium 142 mmol/L (137-145) 06/09/22 05:45 Potassium 3.2 mmol/L (3.5-5.1) L 06/09/22 05:45 Chloride 114 mmol/L (98-107) H 06/09/22 05:45 Carbon Dioxide 22 mmol/L (22-30) 06/09/22 05:45 Anion Gap 6 mmol/L 06/09/22 05:45 BUN 8 mg/dL (7-17) 06/09/22 05:45 Creatinine 0.46 mg/dL (0.52-1.04) L 06/09/22 05:45 Est GFR (CKD-EPI)AfAm >90 (>60 ml/min/1.73 sqM) 06/09/22 05:45 Est GFR (CKD-EPI)NonAf >90 (>60 ml/min/1.73 sqM) 06/09/22 05:45 BUN/Creatinine Ratio 20.07 Ratio (12.00-20.00) H 06/08/22 04:43 Glucose 125 mg/dL (74-99) H 06/09/22 05:45 POC Glucose (mg/dL) 115 mg/dL (70-110) H 06/09/22 12:27 POC Glu Materials Planning Analyst ID Karen Ernandez 06/09/22 12:27 Calcium 8.0 mg/dL (8.4-10.2) L 06/09/22 05:45 Magnesium 2.3 mg/dL (1.6-2.3) 06/09/22 05:45 Total Bilirubin 0.2 mg/dL (0.2-1.3) 06/09/22 05:45 AST 14 U/L (14-36) 06/09/22 05:45 ALT 17 U/L (4-34) 06/09/22 05:45 Alkaline Phosphatase 48 U/L (38-126) 06/09/22 05:45 Ammonia 30 umol/L (<30) H 06/08/22 16:14 Creatine Kinase 69 U/L (30-135) 06/08/22 16:15 Total Protein 4.9 g/dL (6.3-8.2) L 06/09/22 05:45 Albumin 2.5 g/dL (3.5-5.0) L 06/09/22 05:45 TSH 0.816 uIU/mL (0.350-5.500) 06/08/22 04:43 Cortisol 15 ug/dL 06/08/22 16:15 Urine Color Yellow 06/08/22 17:00 Urine Appearance Cloudy (Clear) H 06/08/22 17:00 Urine pH 6.0 (5.0-8.0) 06/08/22 17:00 Ur Specific [place] 1.025 (1.001-1.035) 06/08/22 17:00 Urine Protein 1+ (Negative) H 06/08/22 17:00 Urine Glucose (UA) 2+ (Negative) H 06/08/22 17:00 Urine Ketones Negative (Negative) 06/08/22 17:00 Urine Blood Small (Negative) H 06/08/22 17:00 Urine Nitrite Negative (Negative) 06/08/22 17:00 Urine Bilirubin Negative (Negative) 06/08/22 17:00 Urine Urobilinogen 8.0 mg/dL (<2.0) 06/08/22 17:00 Ur Leukocyte Esterase Moderate (Negative) H 06/08/22 17:00 Urine RBC 33 /hpf (0-5) H 06/08/22 17:00 Urine WBC 63 /hpf (0-5) H 06/08/22 17:00 Amorphous Sediment Rare /hpf (None) H 06/08/22 17:00 Urine Bacteria Occasional /hpf (None) H 06/08/22 17:00 Hyaline Casts 1 /lpf (0-2) 06/08/22 17:00 Urine Mucus Many /hpf (None) H 06/08/22 17:00 Valproic Acid 92.6 ug/mL 06/06/22 04:33 Coronavirus (PCR) Not Detected (Not Detectd) 06/07/22 14:05 Vital Signs Temp 98.9 F 06/09/22 12:00 Pulse 92 06/09/22 13:00 Resp 26 H 06/09/22 13:00 BP 95/59 06/09/22 12:00 Pulse Ox 98 06/09/22 13:00 FiO2 35 06/09/22 12:00 Intake & Output 06/08/22 06/09/22 06/09/22 18:59 06:59 18:59 Intake Total 2181.673 2220.955 Output Total 175 1150 720 Balance -175 185.803 338.955 Weight 67.5 kg 67.5 kg Intake: IV 900 Cefepime 2 gm In Sodium 100 Chloride 0.9% 100 ml @ 25 mls/hr IVPB Q8HR JULIANN Rx# :[id number] Dextrose 5%-0.45% NaCl 1, 600 000 ml @ 100 mls/hr IV . Q10H JULIANN Rx#:[id number] Potassium Chloride 20 meq 200 In Water For Injection 1 100ml.bag @ 50 mls/hr IVPB Q2H JULIANN Rx#: [id number] Intake, IV Titration 1335.803 158.955 Amount Dextrose 5%-0.45% NaCl 1, 1200 000 ml @ 100 mls/hr IV . Q10H JULIANN Rx#:[id number] Norepinephrine 8 mg In 1.175 58.955 Sodium Chloride 0.9% 250 ml @ 0.03 MCG/KG/MIN 3. 918 mls/hr IV .Q24H JULIANN Rx#:[id number] propofoL 1,000 mg In 134.628 100.000 Empty Bag 1 bag @ 15 MCG/ KG/MIN 6.075 mls/hr IV . [id number] JULIANN Rx#:[id number] Output: Urine 175 1150 720 Other: Voiding Method Indwelling Catheter Indwelling Catheter Indwelling Catheter ABP, PAP, CO, CI - Last Documented Arterial Blood Pressure 153/68 Assessment Malignant Catatonia Bipolar 1 disorder Aspiration Pneumonia Plan: -At this time patient DOES NOT QUALIFY for psychiatric admission due to medical complications. Patient requires ICU stabilization. -Patient DOES NOT have decision making capacity at this time and is unable to reason through and communicate/appreciate the risks, benefits and alternatives to treatment. -Patient is under deferral status as she was able to defer prior to deterioration of her mental health. -Patient and/or patient field representatives director may sign out AMA if they do understand the risks, benefits, and treatment alternatives. Risks include further deterioration including debility and . Benefits include possible admission to facility that can utilize treatment with ECT. ECT is not available in our facility. Plan is for transfer to [facility] for higher level of care including utilizing ECT. -Would recommend the following medication changes/additions: As per discussion with family, they do not wish to start any new psychiatric medications. They wish for patient to remain stable in ICU waiting for transfer to [facility]. Continue Valproate sodium 500 mg IV HS for mood stabilization/catatonia. Consider increase to 500 mg BID but family wishes psychiatric medications remain untouched at this time. Continue Ambien 5 mg QHS. -Recommend transferring to medical facility that does ECT. Patient accepted as a medical transfer to the [facility]. -Continue to reassess safety and initiate 1:1 sitter if safety concerns arise. -Psychiatry will continue to follow loosely.
--- NOTE | 2022-06-09 13:48 | EEG ---
ELECTROENCEPHALOGRAM REPORT RELEVANT MEDICATIONS: Ativan, Depakote, as well as IV propofol. EEG TYPE: A routine 21-channel EEG is performed with video using the 10/20 electrode placement system. DESCRIPTION: The patient is intubated on a ventilator. The background consists of interchangeable of diffuse [id number] voltage of 8 to 9 hertz activity that is well modulated, well sustained, then transitions into diffuse theta activity, then delta activity. There is no physiological stage 2 sleep architecture. There is no focal slowing. INTERICTAL AND ICTAL: None. ACTIVATION PROCEDURE: Photic stimulation did not evoke a posterior driving response. There is no abnormality during the photic stimulation. Hyperventilation is not performed. CLINICAL INTERPRETATION: This is abnormal routine EEG. The background slowing is suggestive of moderate encephalopathy. Otherwise, there is no focal slowing, epileptiform discharge or seizure on the EEG. Clinical correlation is recommended. CLARE / DWIGHT: [id number] / MTDD
[2022-06-09] MEDS: ACETAMINOPHEN TAB 325 MG TAB PO PRN (16:16)
[2022-06-09] MEDS ORDERED: VANCOMYCIN IV PER PHARMACY 1 EACH MISC MISCELLANE PRN (16:26)
[2022-06-09] MEDS ORDERED: VANCOMYCIN 1,250 MG in SODIUM CHLORIDE 0.9% 250 ML IVPB SCH (17:00)
[2022-06-09 19:57] VITALS: BP 105/65; PULSE 85; RESP 39; TEMP 99.5
--- NOTE | 2022-06-09 21:37 | P.DS ---
Providers Date of admission: 06/02/22 16:45 Expected date of discharge: 06/09/22 Attending physician: Trey Keyes MD Consults: 06/02/22 16:00 Consult Physician Routine Consulting Provider: Claire Torres Consult Reason/Comments: catatonia Do you want consulting provider notified?: Yes 06/08/22 12:02 Consult Physician Urgent Consulting Provider: Keya Ortiz Consult Reason/Comments: catatonia, autonomic dysfunction Do you want consulting provider notified?: Already Contacted 06/08/22 14:52 Consult Physician Stat Consulting Provider: Josué Womack Consult Reason/Comments: Malignant catatonia Do you want consulting provider notified?: Yes Primary care physician: Stated None Hospital Course: Discharge diagnoses: Catatonia Ventilator-dependent respiratory failure Autonomic dysfunction Febrile Tachypnea Tachycardia Bipolar disorder Dehydration Acute Urinary retention Hypokalemia Hospital Course: 52-year-old woman with a medical history of bipolar disorder presented as a transfer from [facility] under petition certification for worsening psychiatric symptoms. Medicine was consulted for medical clearance of this patient. However, medicine was later contacted given patient's dehydration status, poor by mouth intake, severe catatonia. They requested transfer to the medical floor for IV fluids as well as IV Ativan to break catatonia. Upon evaluation, patient was afebrile, 117/72, heart rate 105, 95% on room air. reviewed from this morning shows leukocytosis to 14.4, chemistries show 134 sodium, CO2 of 21, BUN 21, creatinine of 0.88. Calcium is 10.4. Liver function tests show total bilirubin of 1.5. CK is 604. Vitamin B-12 was 454, folate was 30.8. UA shows cloudy appearance with trace protein, large blood, 8 red blood cells, 6 white blood cells, rare bacteria. Central Agu[place]re level was 1.3 this morning. Treponema antibody was nonreactive. EKG shows sinus tachycardia with left axis deviation, good R-wave progression, no signs of ischemia. Patient having significant autonomic dysfunction, has been getting or tachypneic and with periods of apnea. ICU was consulted, patient transferred to medical ICU and intubated. Neurology also consulted by back stayer. EEG did not show any epileptiform discharges. Patient was able to get a bed at [facility] and was transferred for ECT. Patient was transferred later in the evening on 3/17/23. Patient Condition at Discharge: Critical Plan - Discharge Summary Discharge Rx Participant: Yes New Discharge Prescriptions: No Action Central Agu[place]re Carbonate [Central Aguirre Carbonate ER] 600 mg PO BID Discharge Medication List Central [place] Carbonate [Central [place] Carbonate ER] 600 mg PO BID 10/23/21 [History] Discharge Disposition: OTHER INSTITUTION NOT DEFINED
== END 2022-06-09 20:25 | disposition short-term general hospital (02) | DRG 640 ==
LOC: 5NMEDONC 16:45 → 2SICU 06-08 14:14
PROVIDERS: ADMIT Internal Medicine; ATTEND Internal Medicine
PROC: 3E0G76Z Introduction of Nutritional Substance into Upper GI, Via Natural or Artificial Opening (ICD-10-PCS; 2022-06-07)
PROC: 5A1935Z Respiratory Ventilation, Less than 24 Consecutive Hours (ICD-10-PCS; principal; 2022-06-08)
PROC: 03HY32Z Insertion of Monitoring Device into Upper Artery, Percutaneous Approach (ICD-10-PCS; 2022-06-08)
PROC: 4A133B1 Monitoring of Arterial Pressure, Peripheral, Percutaneous Approach (ICD-10-PCS; 2022-06-08)
PROC: 4A133J1 Monitoring of Arterial Pulse, Peripheral, Percutaneous Approach (ICD-10-PCS; 2022-06-08)
PROC: 02HV33Z Insertion of Infusion Device into Superior Vena Cava, Percutaneous Approach (ICD-10-PCS; 2022-06-08)
PROC: 0BH18EZ Insertion of Endotracheal Airway into Trachea, Via Natural or Artificial Opening Endoscopic (ICD-10-PCS; 2022-06-08)
PROC: 0D9670Z Drainage of Stomach with Drainage Device, Via Natural or Artificial Opening (ICD-10-PCS; 2022-06-08)
PROC: 3E033XZ Introduction of Vasopressor into Peripheral Vein, Percutaneous Approach (ICD-10-PCS; 2022-06-09)
DX: E86.0 Dehydration (principal); J69.0 Pneumonitis due to inhalation of food and vomit; J96.00 Acute respiratory failure, unspecified whether with hypoxia or hypercapnia; R40.20 Unspecified coma; Z99.11 Dependence on respirator [ventilator] status; F20.2 Catatonic schizophrenia; R47.01 Aphasia; G90.8 Other disorders of autonomic nervous system; I95.9 Hypotension, unspecified; F31.9 Bipolar disorder, unspecified; F17.210 Nicotine dependence, cigarettes, uncomplicated; R33.9 Retention of urine, unspecified; E87.6 Hypokalemia; R00.0 Tachycardia, unspecified; Z20.822 Contact with and (suspected) exposure to COVID-19; Z91.199 Patient's noncompliance with other medical treatment and regimen due to unspecified reason; Z81.8 Family history of other mental and behavioral disorders; Z79.899 Other long term (current) drug therapy; Z88.0 Allergy status to penicillin; Z88.8 Allergy status to other drugs, medicaments and biological substances
CPT/HCPCS: 70450; 71045; 80048; 80053; 80164; 81001; 82140; 82533; 82550; 82805; 83735; 84132; 84145; 84443; 85025; 87040; 87070; 87077; 87086; 87186; 87205; 87635; 94760; 95822